=== PATIENT | female | born 1940 | race Caucasian/White ===

== ENCOUNTER 2021-01-08 07:12 | Outpatient (REF) | payer MEDICARE, SELFPAY ==
[2021-01-08 11:35] LABS: Anion Gap 10 (12-20); Blood Urea Nitrogen 14 mg/dL (9-16); Calcium 9.1 mg/dL (8.4-10.2); Carbon Dioxide 29 mmol/L (22-29); Chloride 104 mmol/L (96-108); Estimated Glomerular Filt Rate > 60; Glucose Fasting 92 mg/dL (60-99); Potassium 4.2 mmol/L (3.3-5.1); Sodium 139 mmol/L (135-145)
== END 2021-01-08 07:13 | disposition home or self-care (01) ==
LOC: HO.HMGCLDS 07:12
PROVIDERS: PCP Internal Medicine; Visit Provider Internal Medicine
DX: E78.5 Hyperlipidemia, unspecified (principal); M85.80 Other specified disorders of bone density and structure, unspecified site; I10 Essential (primary) hypertension; Z78.0 Asymptomatic menopausal state
CPT/HCPCS: 36415; 80048

== ENCOUNTER 2021-01-11 08:40 | Outpatient (REF) | payer MEDICARE, SELFPAY ==
--- NOTE | ~2021-01-11 | MM_ITS ---
EXAMINATION: BONE DENSITOMETRY CLINICAL INDICATION: Other specified disorders of bone density and structure, right thigh. COMPARISON: Previous BD dated 08/25/2016 and baseline BD dated 01/31/2008. TECHNIQUE: Using a [employer] DXA System (software version: 13.1) manufactured by [employer], dual-energy x-ray absorptiometry was performed of the lumbar spine and left hip. The images are of good technical quality. Summary results are attached. FINDINGS: AP SPINE L2-L4 (excluding L1): The data of L1-L4 has been changed to exclude the L1 vertebral body, because degenerative changes at this level may cause overestimation of lumbar spine density. Current: BMD 1.177 g/cm2, Z-score 1.3, T-score -0.2, normal, 0.5% decrease from previous, 6.5% increase from baseline (<5% change is not significant). Prior: BMD 1.183 g/cm2. Baseline: BMD 1.105 g/cm2. LEFT FEMUR, NECK: Current: BMD 0.797 g/cm2, Z-score 0.2, T-score -1.7, osteopenia. Prior: BMD 0.858 g/cm2. Baseline: BMD 0.863 g/cm2. LEFT FEMUR, TOTAL: Current: BMD 0.819 g/cm2, Z-score 0.3, T-score -1.5, osteopenia, 6.6% decrease from previous, 8.1% decrease from baseline (<5% change is not significant). Prior: BMD 0.877 g/cm2. Baseline: BMD 0.891 g/cm2. IDENTIFIED RISK FACTORS: Height loss. Menopause. HISTORY OF FRACTURE: None listed. MEDICATIONS: Calcium or multivitamin. Vitamin D. MM/XR DEXA axial skeleton IMPRESSION: 1. DIAGNOSIS: Osteopenia based on the lowest T-score value of -1.7 in the femoral neck applying World Health Organization criteria. 2. 10-YEAR FRACTURE RISK PREDICTION, FRAX: Major osteoporotic fracture (clinical spine, forearm, hip or shoulder) 14.2%. Hip fracture 3.8%. 3. Treatment Recommendations: NOF guidelines recommend consideration for treatment in postmenopausal women and men age 50 and older presenting with the following: -A hip or vertebral (clinical or morphometric) fracture. -T-score less than or equal to -2.5 at the femoral neck or spine after appropriate evaluation to exclude secondary causes. -Low bone mass at the hip or spine and a 10-year fracture probability by FRAX of greater than or equal to 3% for hip fracture or greater than or equal to 20% for major osteoporotic fracture based on the [place] adapted WHO algorithm. 4. Other Recommendations: All treatment decisions require clinical judgment and consideration of individual patient factors, including patient preferences, comorbidities, previous drug use, risk factors not captured in the FRAX model (e.g. frailty, falls, vitamin D deficiency, increased bone turnover, interval significant decline in bone density) and possible under or overestimation of fracture risk by FRAX. Additional medical evaluation for secondary cause of low bone mineral density may be appropriate. FUTURE SCAN RECOMMENDATION: People with diagnosed cases of osteoporosis or at high risk for fracture should have regular bone mineral density tests. For patients eligible for Medicare, routine testing is allowed once every 2 years. The testing frequency can be increased to one year for patients who have rapidly progressing disease, those who are receiving or discontinuing medical therapy to restore bone mass, or have additional risk factors.
--- NOTE | ~2021-01-11 | MM_ITS ---
EXAMINATION: MM SCREENING DIGITAL BREAST TOMOSYNTHESIS, BILATERAL CLINICAL INFORMATION: Screening. Asymptomatic. The lifetime risk of breast cancer based on the Tyrer-Cuzick Model is 2%. COMPARISON: Mammography: 10/30/2019, 10/18/2018, 10/01/2017 TECHNIQUE: Digital breast tomosynthesis is performed in both the craniocaudal and mediolateral oblique views along with computer-aided detection (CAD). Synthesized 2D images are generated from the tomosynthesis. FINDINGS: There are scattered areas of fibroglandular density (ACR BI-RADS breast composition Category b). There are no significant masses, abnormal calcifications, or other abnormalities. There are biopsy clip markers again noted anterior 1:00 left breast and mid lower inner right breast, respectively. There are incidental bilateral vascular calcifications. The axilla and skin contours are unremarkable. MM/MM tomosynthesis screening BI IMPRESSION: No mammographic evidence of malignancy. ASSESSMENT: BI-RADS 2: Benign RECOMMENDATION: Routine annual mammography screening. This patient's information was entered into a reminder system with a target due date for their next mammogram.
== END 2021-01-11 08:41 | disposition home or self-care (01) ==
LOC: HO.MAMMO 08:40
PROVIDERS: PCP Internal Medicine; Visit Provider Internal Medicine
DX: Z12.31 Encounter for screening mammogram for malignant neoplasm of breast (principal); Z13.820 Encounter for screening for osteoporosis; M85.80 Other specified disorders of bone density and structure, unspecified site; M85.851 Other specified disorders of bone density and structure, right thigh; M85.852 Other specified disorders of bone density and structure, left thigh; Z78.0 Asymptomatic menopausal state; Z79.899 Other long term (current) drug therapy
CPT/HCPCS: 77063; 77067; 77080

== ENCOUNTER 2021-08-02 08:11 | Outpatient (REF) | payer MEDICARE, SELFPAY ==
[2021-08-02 11:41] LABS: MANUAL DIFF FLAG NO
[2021-08-02 11:44] LABS: Basophils Percent Auto 0.6 % (0-2); Eosinophils Absolute Auto 0.1 X10*3/uL (0.0-0.4); Eosinophils Percent Auto 2.7 % (0-4); Hemoglobin 13.5 g/dl (12.0-16.0); Imm Gran Abs Auto 0.03 X10*3/uL (0.00-0.03); Imm Gran Pct Auto 0.6 % (0.0-0.4); Lymphocytes Absolute Auto 1.5 X10*3/uL (1.2-4.9); Lymphocytes Percent Auto 28.2 % (20-40); Mean Corpuscular HGB Conc 32.9 g/dl (31.0-35.0); Mean Corpuscular Volume 94.3 fL (80.0-98.0); Mean Platelet Volume 10.4 fL (9.4-12.3); Monocytes Absolute Auto 0.4 X10*3/uL (0.1-1.2); Monocytes Percent Auto 8.6 % (2-11); Neutrophils Absolute Auto 3.1 x10*3/uL (2.0-8.3); Neutrophils Percent Auto 59.3 % (45-73); Platelet Count 225 X10*3/uL (160-400); Red Blood Count 4.35 X10*6/uL (4.20-5.50); Red Cell Distribution Width 12.9 % (11.0-16.0); White Blood Count 5.1 X10*3/uL (4.8-10.8)
[2021-08-02 12:12] LABS: Alanine Aminotransferase 12 U/L (0-31); Anion Gap 12 (12-20); Aspartate Amino Transferase 18 U/L (5-31); Blood Urea Nitrogen 18 mg/dL (9-16); Calcium 9.4 mg/dL (8.4-10.2); Carbon Dioxide 25 mmol/L (22-29); Chloride 105 mmol/L (96-108); Cholesterol 158 mg/dL; Estimated Glomerular Filt Rate > 60; Glucose Fasting 94 mg/dL (60-99); HDL Cholesterol 37 mg/dL; LDL Cholesterol Calculated 91 mg/dl; Potassium 4.3 mmol/L (3.3-5.1); Sodium 138 mmol/L (135-145); Triglycerides 153 mg/dL
[2021-08-02 12:36] LABS: TSH reflex Free T4 2.32 uIU/mL (0.32-4.0); Vitamin D 25-OH Total 60.1 ng/mL (>30)
[2021-08-02 12:45] LABS: Folate > 20.0 ng/mL (> or = 4.0); Vitamin B12 592 pg/mL (200-900)
== END 2021-08-02 08:12 | disposition home or self-care (01) ==
LOC: HO.HMGCLDS 08:11
PROVIDERS: PCP Internal Medicine; Visit Provider Internal Medicine
DX: E78.5 Hyperlipidemia, unspecified (principal); I10 Essential (primary) hypertension; R06.02 Shortness of breath; M85.851 Other specified disorders of bone density and structure, right thigh; M85.852 Other specified disorders of bone density and structure, left thigh; Z78.0 Asymptomatic menopausal state
CPT/HCPCS: 36415; 80048; 80061; 82306; 82607; 82746; 84443; 84450; 84460; 85025

== ENCOUNTER 2022-01-12 09:27 | Outpatient (REF) | payer MEDICARE, SELFPAY ==
--- NOTE | ~2022-01-12 | MM_ITS ---
EXAMINATION: MM SCREENING DIGITAL BREAST TOMOSYNTHESIS, BILATERAL CLINICAL INFORMATION: Screening. Asymptomatic. The lifetime risk of breast cancer based on the Tyrer-Cuzick Model is under 2%. COMPARISON: Mammography: 01/11/2021, 10/30/2019, 10/18/2018 TECHNIQUE: Digital breast tomosynthesis is performed in both the craniocaudal and mediolateral oblique views along with computer-aided detection (CAD). Synthesized 2D images are generated from the tomosynthesis. FINDINGS: There are scattered areas of fibroglandular density (ACR BI-RADS breast composition Category b). There are no significant masses, abnormal calcifications, or other abnormalities. Parenchymal pattern is similar to prior studies. No significant changes. There is a biopsy clip marker again noted anterior upper outer left breast and biopsy clip marker mid lower inner right breast. The axilla are unremarkable. MM/MM tomosynthesis screening BI IMPRESSION: No mammographic evidence of malignancy. ASSESSMENT: BI-RADS 1: Negative RECOMMENDATION: Routine annual mammography screening. This patient's information was entered into a reminder system with a target due date for their next mammogram.
== END 2022-01-12 09:28 | disposition home or self-care (01) ==
LOC: HO.MAMMO 09:27
PROVIDERS: PCP Internal Medicine; Visit Provider Internal Medicine
DX: Z12.31 Encounter for screening mammogram for malignant neoplasm of breast (principal)
CPT/HCPCS: 77063; 77067

== ENCOUNTER 2022-01-19 07:25 | Outpatient (REF) | payer MEDICARE, SELFPAY ==
[2022-01-19 11:40] LABS: Alanine Aminotransferase 13 U/L (0-31); Anion Gap 11 (12-20); Aspartate Amino Transferase 18 U/L (5-31); Blood Urea Nitrogen 22 mg/dL (9-16); Calcium 9.5 mg/dL (8.4-10.2); Carbon Dioxide 26 mmol/L (22-29); Chloride 104 mmol/L (96-108); Cholesterol 157 mg/dL; Estimated Glomerular Filt Rate 57; Glucose Fasting 99 mg/dL (60-99); HDL Cholesterol 38 mg/dL; LDL Cholesterol Calculated 95 mg/dl; Potassium 4.3 mmol/L (3.3-5.1); Sodium 137 mmol/L (135-145); Triglycerides 124 mg/dL
[2022-01-19 12:01] LABS: Vitamin D 25-OH Total 86.4 ng/mL (>30)
== END 2022-01-19 07:26 | disposition home or self-care (01) ==
LOC: HO.HMGCLDS 07:25
PROVIDERS: Visit Provider Internal Medicine
DX: E78.5 Hyperlipidemia, unspecified (principal); M85.851 Other specified disorders of bone density and structure, right thigh; M85.852 Other specified disorders of bone density and structure, left thigh; Z78.0 Asymptomatic menopausal state; I10 Essential (primary) hypertension
CPT/HCPCS: 36415; 80048; 80061; 82306; 84450; 84460

== ENCOUNTER 2022-08-10 08:07 | Outpatient (REF) | payer MEDICARE, SELFPAY ==
[2022-08-10 13:05] LABS: Alanine Aminotransferase 14 U/L (0-31); Anion Gap 10 (12-20); Aspartate Amino Transferase 16 U/L (5-31); Blood Urea Nitrogen 18 mg/dL (9-16); Calcium 9.2 mg/dL (8.4-10.2); Carbon Dioxide 27 mmol/L (22-29); Chloride 104 mmol/L (96-108); Cholesterol 147 mg/dL; Estimated Glomerular Filt Rate > 60; Glucose Fasting 110 mg/dL (60-99); HDL Cholesterol 39 mg/dL; LDL Cholesterol Calculated 90 mg/dl; Potassium 4.2 mmol/L (3.3-5.1); Sodium 137 mmol/L (135-145); Triglycerides 93 mg/dL
== END 2022-08-10 08:08 | disposition home or self-care (01) ==
LOC: HO.HMGCLDS 08:07
PROVIDERS: PCP Internal Medicine; Visit Provider Internal Medicine
DX: E78.5 Hyperlipidemia, unspecified (principal); M85.851 Other specified disorders of bone density and structure, right thigh; M85.852 Other specified disorders of bone density and structure, left thigh; Z78.0 Asymptomatic menopausal state
CPT/HCPCS: 36415; 80048; 80061; 82306; 84450; 84460

== ENCOUNTER 2023-02-19 08:47 | Outpatient (REF) | payer MEDICARE, SELFPAY ==
[2023-02-19 12:06] LABS: Alanine Aminotransferase 10 U/L (0-31); Anion Gap 11 (12-20); Aspartate Amino Transferase 18 U/L (5-31); Blood Urea Nitrogen 18 mg/dL (9-16); Calcium 9.6 mg/dL (8.4-10.2); Carbon Dioxide 26 mmol/L (22-29); Chloride 105 mmol/L (96-108); Cholesterol 138 mg/dL; Estimated Glomerular Filt Rate 54; Glucose Fasting 96 mg/dL (60-99); HDL Cholesterol 35 mg/dL; LDL Cholesterol Calculated 80 mg/dl; Potassium 4.1 mmol/L (3.3-5.1); Sodium 138 mmol/L (135-145); Triglycerides 118 mg/dL
[2023-02-19 12:16] LABS: Vitamin D 25-OH Total 81.2 ng/mL (>30)
== END 2023-02-19 08:48 | disposition home or self-care (01) ==
LOC: HO.HMGCLDS 08:47
PROVIDERS: PCP Internal Medicine; Visit Provider Internal Medicine
DX: Z00.01 Encounter for general adult medical examination with abnormal findings (principal); E78.5 Hyperlipidemia, unspecified; M85.851 Other specified disorders of bone density and structure, right thigh; M85.852 Other specified disorders of bone density and structure, left thigh; Z78.0 Asymptomatic menopausal state
CPT/HCPCS: 36415; 80048; 80061; 82306; 84450; 84460

== ENCOUNTER 2023-02-28 08:40 | Outpatient (REF) | payer MEDICARE, SELFPAY ==
--- NOTE | ~2023-02-28 | MM_ITS ---
EXAMINATION: MM SCREENING DIGITAL BREAST TOMOSYNTHESIS, BILATERAL CLINICAL INFORMATION: Screening. Asymptomatic. The lifetime risk of breast cancer based on the Tyrer-Cuzick Model is 0.7%. COMPARISON: Mammography: This study is compared with prior exams dating back to TECHNIQUE: Digital breast tomosynthesis is performed in both the craniocaudal and mediolateral oblique views along with computer-aided detection (CAD). Synthesized 2D images are generated from the tomosynthesis. FINDINGS: There are scattered areas of fibroglandular density (ACR BI-RADS breast composition Category b). There are no significant masses, abnormal calcifications, or other abnormalities. There are tissue markers in each breast from prior percutaneous biopsies. MM/MM tomosynthesis screening BI IMPRESSION: No mammographic evidence of malignancy. ASSESSMENT: BI-RADS BI-RADS 2 - Benign Findings RECOMMENDATION: Routine annual mammography screening. 1 year F/U This examination should not preclude the clinical evaluation of a suspicious palpable abnormality. This patient's information was entered into a reminder system with a target due date for their next mammogram.
--- NOTE | ~2023-02-28 | MM_ITS ---
EXAMINATION: BONE DENSITOMETRY CLINICAL INDICATION: Other specified disorders of bone density and structure. COMPARISON: Previous BD dated 01/11/2021 and baseline BD dated 01/31/2008. TECHNIQUE: Using a [employer] DXA System (software version: 13.1) manufactured by [employer], dual-energy x-ray absorptiometry was performed of the lumbar spine and left hip. The images are of good technical quality. Summary results are attached. FINDINGS: AP SPINE L2-L4 (excluding L1): The data of L1-L4 has been changed to exclude the L1 vertebral body, because degenerative sclerosis at this level may cause overestimation of lumbar spine density. Current: BMD 1.203 g/cm2, Z-score 1.7, T-score 0.0, normal, 2.2% increase from previous, 8.9% increase from baseline (<5% change is not significant). Prior: BMD 1.177 g/cm2. Baseline: BMD 1.105 g/cm2. LEFT FEMUR, NECK: Current: BMD 0.811 g/cm2, Z-score 0.5, T-score -1.6, osteopenia. Prior: BMD 0.797 g/cm2. Baseline: BMD 0.863 g/cm2. LEFT FEMUR, TOTAL: Current: BMD 0.776 g/cm2, Z-score 0.2, T-score -1.8, osteopenia, 5.3% decrease from previous, 12.9% decrease from baseline (<5% change is not significant). Prior: BMD 0.819 g/cm2. Baseline: BMD 0.891 g/cm2. IDENTIFIED RISK FACTORS: Menopause, low calcium intake, height loss. HISTORY OF FRACTURE: None listed. MEDICATIONS: Vitamin D. MM/XR DEXA axial skeleton IMPRESSION: 1. DIAGNOSIS: Osteopenia based on the lowest T-score value of -1.8 in the total femur applying World Health Organization criteria. 2. 10-YEAR FRACTURE RISK PREDICTION, FRAX: Major osteoporotic fracture (clinical spine, forearm, hip or shoulder) 14.0%. Hip fracture 3.9%. 3. Treatment Recommendations: NOF guidelines recommend consideration for treatment in postmenopausal women and men age 50 and older presenting with the following: -A hip or vertebral (clinical or morphometric) fracture. -T-score less than or equal to -2.5 at the femoral neck or spine after appropriate evaluation to exclude secondary causes. -Low bone mass at the hip or spine and a 10-year fracture probability by FRAX of greater than or equal to 3% for hip fracture or greater than or equal to 20% for major osteoporotic fracture based on the [place] adapted WHO algorithm. 4. Other Recommendations: All treatment decisions require clinical judgment and consideration of individual patient factors, including patient preferences, comorbidities, previous drug use, risk factors not captured in the FRAX model (e.g. frailty, falls, vitamin D deficiency, increased bone turnover, interval significant decline in bone density) and possible under or overestimation of fracture risk by FRAX. Additional medical evaluation for secondary cause of low bone mineral density may be appropriate. FUTURE SCAN RECOMMENDATION: People with diagnosed cases of osteoporosis or at high risk for fracture should have regular bone mineral density tests. For patients eligible for Medicare, routine testing is allowed once every 2 years. The testing frequency can be increased to one year for patients who have rapidly progressing disease, those who are receiving or discontinuing medical therapy to restore bone mass, or have additional risk factors.
== END 2023-02-28 08:41 | disposition home or self-care (01) ==
LOC: HO.MAMMO 08:40
PROVIDERS: PCP Internal Medicine; Visit Provider Internal Medicine
DX: Z12.31 Encounter for screening mammogram for malignant neoplasm of breast (principal); Z13.820 Encounter for screening for osteoporosis; Z78.0 Asymptomatic menopausal state; M85.851 Other specified disorders of bone density and structure, right thigh; M85.852 Other specified disorders of bone density and structure, left thigh
CPT/HCPCS: 77063; 77067; 77080

== ENCOUNTER → 2023-02-28 09:00 | Outpatient (BNV) | payer MEDICARE, SELFPAY | PROVIDERS: PCP Internal Medicine; Visit Provider Radiology Diagnostic Radiology | DX: Z12.31 Encounter for screening mammogram for malignant neoplasm of breast (principal) | CPT/HCPCS: 77063; 77067 ==

== ENCOUNTER 2023-08-04 06:34 | Outpatient (REF) | payer MEDICARE, SELFPAY ==
[2023-08-04 11:30] LABS: Alanine Aminotransferase 15 U/L (0-31); Anion Gap 11 (12-20); Aspartate Amino Transferase 20 U/L (5-31); Blood Urea Nitrogen 24 mg/dL (9-16); Calcium 9.2 mg/dL (8.4-10.2); Carbon Dioxide 26 mmol/L (22-29); Chloride 106 mmol/L (96-108); Cholesterol 213 mg/dL (<200); Estimated Glomerular Filt Rate > 60; Glucose Fasting 89 mg/dL (60-99); HDL Cholesterol 41 mg/dL (>40); LDL Cholesterol Calculated 153 mg/dL (<100); Sodium 139 mmol/L (135-145); Triglycerides 99 mg/dL (<150)
[2023-08-04 11:37] LABS: Vitamin D 25-OH Total 91.5 ng/mL (>30)
== END 2023-08-04 06:35 | disposition home or self-care (01) ==
LOC: HO.HMGCLDS 06:34
PROVIDERS: PCP Internal Medicine; Visit Provider Internal Medicine
DX: E78.5 Hyperlipidemia, unspecified (principal); I44.0 Atrioventricular block, first degree; M85.851 Other specified disorders of bone density and structure, right thigh; M85.852 Other specified disorders of bone density and structure, left thigh; Z78.0 Asymptomatic menopausal state
CPT/HCPCS: 36415; 80048; 80061; 82306; 84450; 84460

== ENCOUNTER 2023-08-24 09:20 | Outpatient (AMB) | payer MEDICARE, SELFPAY ==
--- NOTE | 2023-08-24 09:36 | MHC.PC.OV ---
Vital Signs 08/24/23 10:03 Height 5 ft 4 in Weight 154 lb BMI 26.4 BP 118/66 Blood Pressure Location Lt brachial Position Sitting Pulse 53 Pulse Source Pulse Oximeter Pulse Oximetry (%) 97 Oxygen Delivery Method Room Air Intake Visit Reasons: 6 month follow up Intake Note: Pt is her today for her 6 mo. f/u Allergies Sulfa (Sulfonamide Antibiotics) Allergy (Unknown, Verified 08/24/23 10:23) cough, itching lisinopril Adverse Reaction (Unknown, Verified 08/24/23 10:23) cough Medication List - Last Reconciled 08/24/23 by Rocio Clarke MD amlodipine 10 mg PO DAILY ascorbic acid (vitamin C) 1 g PO ONCE brimonidine 0.2% 1 drp ophthalmic (eye) Q12H cholecalciferol (vitamin D3) 50 mcg PO DAILY latanoprost 0.005% 1 drp ophthalmic (eye) BEDTIME netarsudil 0.02% (Rhopressa) 1 drp ophthalmic-Left QPM simvastatin 10 mg PO QPM timolol maleate 0.5% 1 drp ophthalmic (eye) BID vit [id number] mg (Bioflex) tabs PO vitamin E 400 units PO DAILY Tobacco use date assessed: 08/24/23 Fall risk assessment: No Falls in past year Last assessed Fall Risk: 08/24/23 Dental Screening Dental Screen Date: 08/24/23 Did you have a dental visit in the last 12 months?: No Did you have a dental problem in the last 6 months where you did not have access to dental care?: No Was dental information given to patient?: Patient declined HPI 6 month follow up HPI Details 83-year-old lady here today for follow-up on her lipids. She stop taking her simvastatin since last visit approximately 6 months ago and has only been taking flaxseed. Recent fasting lipids however showed marked elevation in her total cholesterol and LDL cholesterol but triglycerides are within normal limits. She stays active, has been trying to eat a healthy diet, has no complaints at present time. Still refusing to take any vaccine. She had recent bone density scan showing presence of osteopenia in her left femoral neck and left femur, not much change from last time, no history of fractures recent screening mammogram showed results within normal limits. [facility] Medical History First degree AV block Sinus bradycardia on ECG Refused influenza vaccine Refused pneumococcal vaccine Dermatitis Dyslipidemia Hx of fibrocystic disease of breast Post-menopause Osteopenia of both hips Surgical History Hx of colonoscopy Hx of breast biopsy Family History Father No problems noted. Mother No problems noted. Social History Housing: House Alcohol intake: never Patient Tobacco Use Status: Never used Tobacco e-Cigarette/Vaping Use: Never Used service: No Current occupational status: retired Cognitive needs: No Hearing needs: No Vision needs: Yes Questionnaire PHQ-9 Over the last 2 weeks, how often have you been bothered by any of the following problems? [id number] - PHQ-9 Billing: Patient declined-do not bill Source: Developed by Drs. Herman Jacobo, Ksenia Le, Luis Milian and colleagues, with an educational zeyad from [employer]. Thrive Questionnaire Date Thrive assessed: 02/19/23 AUDIT C Alcohol Use Questionnaire (AUDIT-C) 1. How often do you have a drink containing alcohol?: Never 3. How often do you have six or more drinks on one occasion?: Never Total Score: 0 Score Reviewed/Action Taken: Yes TAM-7 AMB Questionnaire TAM-7 Date TAM - 7 assessed: 08/24/23 Source: Developed by Drs. Herman Jacobo, Ksenia Le, Luis Milian and colleagues, with an educational zeyad from [employer]. TAM-7 Assessment Billing TAM-7 Assessment Tool: pt declined-do not bill Review of Systems Const Denies body aches, Denies fatigue, Denies fever(s), Denies headache(s), Denies poor appetite and Denies weakness Eyes Details: Sees Dr. Reyes, with history of impending retinal detachment status post laser surgery 2 weeks ago Denies change in vision ENT Reports Normal hearing present, Denies dizziness, Denies headache(s), Denies nasal congestion, Denies nasal discharge and Denies sore throat Card Denies chest pain, Denies lightheadedness, Denies palpitations and Denies orthopnea Resp Denies chest congestion, Denies cough and Denies wheezing GI Denies abdominal pain, Denies melena, Denies hematochezia, Denies change in bowel habits and Denies heartburn Denies urinary frequency, Denies dysuria and Denies urinary urgency Musc Details: Occasional stiffness in hips Denies abnormal gait, Denies myalgias and Denies arthralgias Skin/Breast Reports as per HPI, Denies lesions and Denies rash Neuro Reports Normal hearing present, Denies abnormal gait, Denies dizziness, Denies headache(s), Denies memory loss and Denies weakness Psych Denies memory loss Endo Denies fatigue, Denies polydipsia, Denies polyuria and Denies palpitations Fabio/Lymph Denies easy bleeding and Denies easy bruising Aller/Immun Denies seasonal rhinorrhea and Denies wheezing Physical exam (Primary Care) Vital Signs: Last Vital Signs Pulse 53 08/24/23 10:03 BP 118/66 08/24/23 10:03 Pulse Ox 97 08/24/23 10:03 Oxygen Delivery Method Room Air 08/24/23 10:03 BMI result Body Mass Index 26.4 Tobacco/Smoking Status: Tobacco use Status Tobacco use date assessed 08/24/23 08/24/23 09:37 Patient Tobacco Use Status Never used Tobacco 08/24/23 09:36 e-Cigarette/Vaping Use Never Used 08/24/23 09:36 Thrive Assessment: Date of Thrive Assessment Date Thrive assessed 02/19/23 08/24/23 09:36 Const General: comfortable, no acute distress and alert Orientation/consciousness: patient oriented x3 Limitations: no limitations HENMT Ears: external ears normal Eyes General: appearance normal, both eyes and all related structures Neck Neck: Yes full ROM, Yes no lymphadenopathy and Yes supple Resp Effort & Inspection: normal respiratory effort and able to speak in complete sentences Auscultation: clear to auscultation bilaterally Cardio Rate: regular rate Rhythm: regular rhythm Heart sounds: S1 normal heart sound present and S2 normal heart sound present GI Palpation (GI): Soft to palpation, nontender and no masses Auscultation: normal bowel sounds Back/Spine/Pelvis Back: No back tenderness Neuro General: patient oriented x3, gait normal, tone normal, moves all extremities, Normal light touch and pain sensation and no focal motor deficits Cranial nerves: Yes Normal hearing present Cognition (Neuro): normal cognition Extrem General: Yes full ROM, Yes no joint enlargement, Yes no clubbing, cyanosis or edema and Yes no calf tenderness Results Reviewed Results Reviewed: sy: Padmaja Casarez Age/Sex: 83/F : 1940 Unit#: [id number] Attend Dr: Rocio Clarke MD Re08/04/23 Status: DEP [facility] Disch: SPEC : [id number] SHARLA: 08/04/23 STATUS: COMP REQ : [id number] RECD: 08/04/23-[address]: Rocio Clarke MD COMP: 08/04/23 ENTERED: 08/04/[address]: ORDERED: Met Prof Fast, AST, ALT, Lipid Panel, Vitamin D 25-OH Test Result Flag Reference Site Sodium 139 135-145 mmol/L Potassium 4.0 3.3-5.1 mmol/L CL 106 96-108 mmol/L CO2 26 22-29 mmol/L Gap 11 L 12-20 BUN 24 H 9-16 mg/dL Creat 0.86 0.5-1.4 mg/dL EGFR > 60 NOTE: For -[place] individuals, multiply the result by 1.210. Chronic Kidney Disease: Estimated GFR < 60 mL/min/1.73m2 Severe Kidney Disease: Estimated GFR < 15 mL/min/1.73m2 FBS 89 60-99 mg/dL CA 9.2 8.4-10.2 mg/dL AST (GOT) 20 5-31 U/L ALT (GPT) 15 0-31 U/L Triglyceride 99 <150 mg/dL Desirable Triglyceride: less than 150 mg/dL Borderline High Triglyceride 150-199 mg/dL High Triglyceride: 200-499 mg/dL Very High Triglyceride: greater than or equal to 5OO mg/dL Cholesterol 213 H <200 mg/dL Desirable Cholesterol: less than 200 mg/dL Borderline High Cholesterol: 200-239 mg/dL High Cholesterol: greater than 239 mg/dL LDL Calculated 153 H <100 mg/dL Desirable LDL: less than 100 mg/dL Near Optimal/Above Optimal LDL: 110-129 mg/dL Borderline High LDL: 130-159 mg/dL High LDL: 160-189 mg/dL Very High LDL: greater than or equal to 190 mg/dL HDL 41 >40 mg/dL Desirable HDL: greater than 40 mg/dL Note: This HDL assay may give artificially low results in patients with liver disease. Vit D 25-OH Tot 91.5 >30 ng/mL Health Based Reference Values* < 20 ng/mL Deficient 20-30 ng/mL Insufficient > 30 ng/mL Sufficient Assessment and Plan Assessment & Plan (1) Dyslipidemia: Code(s): E78.5 - Hyperlipidemia, unspecified Plan: Discuss recent for results of fasting labs with patient which showed marked elevation in total cholesterol and LDL cholesterol as compared to last check. Will restart back on simvastatin 10 mg at bedtime, may continue taking flaxseed supplements, continue with healthy eating habits, low-cholesterol diet, regular exercise, repeat another fasting lipid panel in December 2023 (2) Osteopenia of both hips: Code(s): M85.851 - Other specified disorders of bone density and structure, right thigh; M85.852 - Other specified disorders of bone density and structure, left thigh Plan: Continue doing regular weight-bearing exercise, continue taking vitamin-D 3 supplements and taking adequate calcium from dietary sources (3) Refused pneumococcal vaccine: Code(s): Z28.21 - Immunization not carried out because of patient refusal (4) Refused influenza vaccine: Code(s): Z28.21 - Immunization not carried out because of patient refusal Orders: Orders Lipid Panel 12/26/23 E78.5 - Hyperlipidemia, unspecified, I44.0 - Atrioventricular block, first degree, Z78.0 - Asymptomatic menopausal state Alanine Aminotransferase 12/26/23 E78.5 - Hyperlipidemia, unspecified, I44.0 - Atrioventricular block, first degree, Z78.0 - Asymptomatic menopausal state Aspartate Amino Transferase 12/26/23 E78.5 - Hyperlipidemia, unspecified, I44.0 - Atrioventricular block, first degree, Z78.0 - Asymptomatic menopausal state Basic Metabolic Panel Fasting 12/26/23 E78.5 - Hyperlipidemia, unspecified, I44.0 - Atrioventricular block, first degree, Z78.0 - Asymptomatic menopausal state Hemoglobin and Hematocrit 12/26/23 E78.5 - Hyperlipidemia, unspecified, I44.0 - Atrioventricular block, first degree, Z78.0 - Asymptomatic menopausal state Medications: Refilled simvastatin 10 mg PO QPM 90 tabs 3RF Coding Level of Care Code Est Pt Level 3 (74394) Diagnoses Dyslipidemia E78.5 Osteopenia of both hips M85.851; M85.852 Refused pneumococcal vaccine Z28.21 Refused influenza vaccine Z28.21
[2023-08-24 10:03] VITALS: BP 118/66; PULSE 53; O2SAT 97; BMI 26.4
== END 2023-08-24 10:40 | disposition home or self-care (01) ==
PROVIDERS: PCP Internal Medicine; Visit Provider Internal Medicine
DX: E78.5 Hyperlipidemia, unspecified (principal); M85.851 Other specified disorders of bone density and structure, right thigh; M85.852 Other specified disorders of bone density and structure, left thigh; Z28.21 Immunization not carried out because of patient refusal
CPT/HCPCS: 99213

== ENCOUNTER 2024-01-10 07:32 | Outpatient (REF) | payer MEDICARE, SELFPAY ==
[2024-01-10 10:20] LABS: Hematocrit 37.9 % (37.0-47.0); Hemoglobin 12.6 g/dl (12.0-16.0)
[2024-01-10 10:35] LABS: Alanine Aminotransferase 12 U/L (0-31); Anion Gap 11 (12-20); Aspartate Amino Transferase 18 U/L (5-31); Blood Urea Nitrogen 16 mg/dL (9-16); Calcium 9.2 mg/dL (8.4-10.2); Carbon Dioxide 28 mmol/L (22-29); Chloride 103 mmol/L (96-108); Cholesterol 134 mg/dL (<200); Estimated Glomerular Filt Rate > 60; Glucose Fasting 94 mg/dL (60-99); HDL Cholesterol 42 mg/dL (>40); LDL Cholesterol Calculated 79 mg/dL (<100); Potassium 4.1 mmol/L (3.3-5.1); Sodium 138 mmol/L (135-145); Triglycerides 65 mg/dL (<150)
== END 2024-01-10 07:33 | disposition home or self-care (01) ==
LOC: HO.HMGCLDS 07:32
PROVIDERS: PCP Internal Medicine; Visit Provider Internal Medicine
DX: E78.5 Hyperlipidemia, unspecified (principal); Z78.0 Asymptomatic menopausal state; I44.0 Atrioventricular block, first degree
CPT/HCPCS: 36415; 80048; 80061; 84450; 84460; 85014; 85018

== ENCOUNTER 2024-02-21 08:58 | Outpatient (AMB) | payer MEDICARE, SELFPAY ==
--- NOTE | 2024-02-21 09:01 | MHC.PC.OV ---
Vital Signs 02/21/24 09:02 Height 5 ft 4 in Weight 158 lb BMI 27.1 BP 140/80 H Blood Pressure Location Lt brachial Position Sitting Pulse 60 Pulse Source Pulse Oximeter Pulse Oximetry (%) 98 Oxygen Delivery Method Room Air Intake Visit Reasons: PE Intake Note: Pt is here today for her PE: bone density scan 02/28/23 Allergies Sulfa (Sulfonamide Antibiotics) Allergy (Unknown, Verified 02/21/24 09:22) cough, itching lisinopril Adverse Reaction (Unknown, Verified 02/21/24 09:22) cough Medication List - Last Reconciled 02/21/24 by Rocio Clarke MD amlodipine 10 mg PO DAILY ascorbic acid (vitamin C) 1 g PO ONCE brimonidine 0.2% 1 drp ophthalmic (eye) Q12H cholecalciferol (vitamin D3) 50 mcg PO DAILY latanoprost 0.005% 1 drp ophthalmic (eye) BEDTIME netarsudil 0.02% (Rhopressa) 1 drp ophthalmic-Left QPM simvastatin 10 mg PO QPM timolol maleate 0.5% 1 drp ophthalmic (eye) BID vit [id number] 503-05-06-40 mg (Bioflex) tabs PO vitamin E 400 units PO DAILY Tobacco use date assessed: 02/21/24 Fall risk assessment: No Falls in past year Last assessed Fall Risk: 02/21/24 Dental Screening Dental Screen Date: 02/21/24 Did you have a dental visit in the last 12 months?: No Did you have a dental problem in the last 6 months where you did not have access to dental care?: No Was dental information given to patient?: No HPI PE HPI Details 83-year-old lady here today for physical exam. She is up-to-date with her screening mammogram and bone density scan done 02/28/2023 which showed normal findings except for presence of osteopenia in left femoral neck and left femur, normal in lumbar spine. 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 She takes amlodipine 10 mg daily and simvastatin 10 mg at night for her hypertension and hyperlipidemia both of which are well controlled She has glaucoma, followed by Dr. Reyes She has been feeling well, with no complaints of any chest pain now headaches no dizziness no shortness of breath. PFSH Medical History (Updated 02/21/24 @ 09:36 by Rocio Clarke MD) Essential hypertension First degree AV block Sinus bradycardia on ECG Refused influenza vaccine Refused pneumococcal vaccine Dermatitis Dyslipidemia Hx of fibrocystic disease of breast Post-menopause Osteopenia of both hips Surgical History Hx of colonoscopy Hx of breast biopsy Family History Father No problems noted. Mother No problems noted. Social History Housing: House Alcohol intake: never Patient Tobacco Use Status: Never used Tobacco e-Cigarette/Vaping Use: Never Used service: No Current occupational status: retired Cognitive needs: No Hearing needs: No Vision needs: Yes Questionnaire PHQ-9 Over the last 2 weeks, how often have you been bothered by any of the following problems? 34754 - PHQ-9 Billing: Patient declined-do not bill Source: Developed by Drs. Herman Jacobo, Ksenia Le, Luis Milian and colleagues, with an educational zeyad from [employer]. Thrive Questionnaire Date Thrive assessed: 02/21/24 What is your living situation today?: I choose not to answer this question Within the past 12 months, did the food you bought not last and you didn't have the money to get more?: I choose not to answer this question Within the past 12 months, did you worry whether your food would run out before you got money to buy more?: I choose not to answer this question Do you have trouble paying for medicines?: I choose not to answer this question Do you have trouble getting transportation to medical appointments?: I choose not to answer this question Do you have trouble paying your heating and electricity bill?: I choose not to answer this question Do you have trouble taking care of your child, family member or friend?: I choose not to answer this question Do you have trouble with day-to-day activities such as bathing, preparing meals, shopping, managing finances, etc.?: I choose not to answer this question Are you currently unemployed and looking for a job?: I choose not to answer this question Are you interested in more education?: I choose not to answer this question Currently or been in a relationship where the following occur: I choose not to answer THRIVE Score: 0 AUDIT C Alcohol Use Questionnaire (AUDIT-C) 1. How often do you have a drink containing alcohol?: Never 3. How often do you have six or more drinks on one occasion?: Never Total Score: 0 Score Reviewed/Action Taken: No TAM-7 AMB Questionnaire TAM-7 Date TAM - 7 assessed: 02/21/24 Source: Developed by Drs. Herman Jacobo, Ksenia Le, Luis Milian and colleagues, with an educational zeyad from [employer]. TAM-7 Assessment Billing TAM-7 Assessment Tool: pt declined-do not bill Review of Systems Const Denies body aches, Denies fatigue, Denies fever(s), Denies headache(s), Denies poor appetite and Denies weakness Eyes Details: Sees Dr. Reyes, Denies change in vision ENT Reports Normal hearing present, Denies dizziness, Denies headache(s), Denies nasal congestion, Denies nasal discharge and Denies sore throat Card Denies chest pain, Denies lightheadedness, Denies palpitations and Denies orthopnea Resp Denies chest congestion, Denies cough and Denies wheezing GI Denies abdominal pain, Denies melena, Denies hematochezia, Denies change in bowel habits and Denies heartburn Denies urinary frequency, Denies dysuria and Denies urinary urgency Musc Details: Occasional stiffness in hips Denies abnormal gait, Denies myalgias and Denies arthralgias Skin/Breast Reports as per HPI, Denies lesions and Denies rash Neuro Reports Normal hearing present, Denies abnormal gait, Denies dizziness, Denies headache(s), Denies memory loss and Denies weakness Psych Denies memory loss Endo Denies fatigue, Denies polydipsia, Denies polyuria and Denies palpitations Fabio/Lymph Denies easy bleeding and Denies easy bruising Aller/Immun Denies seasonal rhinorrhea and Denies wheezing Physical exam (Primary Care) Vital Signs: Last Vital Signs Pulse 60 02/21/24 09:02 BP 140/80 H 02/21/24 09:02 Pulse Ox 98 02/21/24 09:02 Oxygen Delivery Method Room Air 02/21/24 09:02 BMI result Body Mass Index 27.1 Tobacco/Smoking Status: Tobacco use Status Tobacco use date assessed 02/21/24 02/21/24 09:06 Patient Tobacco Use Status Never used Tobacco 02/21/24 09:06 e-Cigarette/Vaping Use Never Used 02/21/24 09:06 Thrive Assessment: Date of Thrive Assessment Date Thrive assessed 02/21/24 02/21/24 09:06 Currently or been in a relationship where the following occur: I choose not to answer Const General: comfortable, no acute distress and alert Orientation/consciousness: patient oriented x3 Limitations: no limitations HENMT Ears: external ears normal Eyes General: appearance normal, both eyes and all related structures Neck Neck: Yes full ROM, Yes no lymphadenopathy and Yes supple Chest Breast/axilla palpation: normal palpation of the breasts Resp Effort & Inspection: normal respiratory effort and able to speak in complete sentences Auscultation: clear to auscultation bilaterally Cardio Rate: regular rate Rhythm: regular rhythm Heart sounds: S1 normal heart sound present, S2 normal heart sound present and Murmur heart sound present systolic soft and at the left sternal border GI Palpation (GI): Soft to palpation, nontender and no masses Auscultation: normal bowel sounds Back/Spine/Pelvis Back: No back tenderness Skin General skin exam: no rashes or lesions noted Neuro General: patient oriented x3, gait normal, tone normal, moves all extremities, Normal light touch and pain sensation and no focal motor deficits Cranial nerves: Yes Normal hearing present Cognition (Neuro): normal cognition Extrem General: Yes full ROM, Yes no joint enlargement, Yes no clubbing, cyanosis or edema and Yes no calf tenderness Psych Appearance: grossly normal and well kempt Mental Status: mental status grossly normal Speech and movement: Normal speech and movement present Affect: normal affect Attitude: cooperative Thought process: Normal thought process present Thought content: Normal thought content present Results Reviewed Results Reviewed: Name: Padmaja Casarez Age/Sex: 83/F : 1940 Unit#: [id number] Attend Dr: Rocio Clarke MD Re01/10/24 Status: DEP REF Location: [facility] Disch: SPEC : [id number] SHARLA: 01/10/24 STATUS: COMP REQ : [id number] RECD: 01/10/24 [facility] DR: Rocio Clarke MD COMP: 01/10/24 ENTERED: 01/10/24 [facility] DR: ORDERED: Met Prof Fast, AST, ALT, Lipid Panel Test Result Flag Reference Sodium 138 135-145 mmol/L Potassium 4.1 3.3-5.1 mmol/L CL 103 96-108 mmol/L CO2 28 22-29 mmol/L Gap 11 L 12-20 BUN 16 9-16 mg/dL Creat 0.87 0.5-1.4 mg/dL EGFR > 60 NOTE: For -[place]rist[place] individuals, multiply the result by 1.210. Chronic Kidney Disease: Estimated GFR < 60 mL/min/1.73m2 Severe Kidney Disease: Estimated GFR < 15 mL/min/1.73m2 FBS 94 60-99 mg/dL CA 9.2 8.4-10.2 mg/dL AST (GOT) 18 5-31 U/L ALT (GPT) 12 0-31 U/L Triglyceride 65 <150 mg/dL Desirable Triglyceride: less than 150 mg/dL Borderline High Triglyceride 150-199 mg/dL High Triglyceride: 200-499 mg/dL Very High Triglyceride: greater than or equal to 5OO mg/dL Cholesterol 134 <200 mg/dL Desirable Cholesterol: less than 200 mg/dL Borderline High Cholesterol: 200-239 mg/dL High Cholesterol: greater than 239 mg/dL LDL Calculated 79 <100 mg/dL Desirable LDL: less than 100 mg/dL Near Optimal/Above Optimal LDL: 110-129 mg/dL Borderline High LDL: 130-159 mg/dL High LDL: 160-189 mg/dL Very High LDL: greater than or equal to 190 mg/dL HDL 42 >40 mg/dL Desirable HDL: greater than 40 mg/dL Note: This HDL assay may give artificially low results in patients with liver disease. Assessment and Plan Assessment & Plan (1) Annual visit for general adult medical examination with abnormal findings: Code(s): Z00.01 - Encounter for general adult medical examination with abnormal findings Plan: Reviewed recent fasting lab results with patient which showed normal fasting glucose and lipids.. She sees Dr. Reyes for routine eye exam and follow-up on glaucoma . Take adequate calcium in diet and vitamin-D 3 at 2000 IU per cap once a day, in addition to weight-bearing exercises to help maintain good muscle tone and weight control. I up-to-date with her screening mammogram and bone density scan. No further colonoscopy indicated. Patient does not want to get any vaccines (2) Systolic ejection murmur: Code(s): R01.1 - Cardiac murmur, unspecified Plan: Ordered transthoracic echocardiogram (3) Osteopenia of both hips: Code(s): M85.851 - Other specified disorders of bone density and structure, right thigh; M85.852 - Other specified disorders of bone density and structure, left thigh Plan: Continue with regular weight-bearing exercise, stay active, take adequate calcium from dietary sources and continue with vitamin-D 3 supplements 50 mcg daily (4) Dyslipidemia: Code(s): E78.5 - Hyperlipidemia, unspecified Plan: Recent fasting lab showed lipids within normal limits, continue on simvastatin 10 mg at night (5) Refused pneumococcal vaccine: Code(s): Z28.21 - Immunization not carried out because of patient refusal (6) Refused influenza vaccine: Code(s): Z28.21 - Immunization not carried out because of patient refusal Orders: Orders CA echo transthoracic complete 02/21/24 R01.1 - Cardiac murmur, unspecified Lipid Panel 1 Year E78.5 - Hyperlipidemia, unspecified, M85.851 - Other specified disorders of bone density and structure, right thigh, M85.852 - Other specified disorders of bone density and structure, left thigh, Z00.01 - Encounter for general adult medical examination with abnormal findings, I10 - Essential (primary) hypertension Alanine Aminotransferase 1 Year E78.5 - Hyperlipidemia, unspecified, Z28.21 - Immunization not carried out because of patient refusal, M85.851 - Other specified disorders of bone density and structure, right thigh, M85.852 - Other specified disorders of bone density and structure, left thigh, Z00.01 - Encounter for general adult medical examination with abnormal findings, I10 - Essential (primary) hypertension Basic Metabolic Panel Fasting 1 Year E78.5 - Hyperlipidemia, unspecified, Z28.21 - Immunization not carried out because of patient refusal, M85.851 - Other specified disorders of bone density and structure, right thigh, M85.852 - Other specified disorders of bone density and structure, left thigh, Z00.01 - Encounter for general adult medical examination with abnormal findings, I10 - Essential (primary) hypertension Vitamin D 25-OH Total 1 Year E78.5 - Hyperlipidemia, unspecified, Z28.21 - Immunization not carried out because of patient refusal, M85.851 - Other specified disorders of bone density and structure, right thigh, M85.852 - Other specified disorders of bone density and structure, left thigh, Z00.01 - Encounter for general adult medical examination with abnormal findings, I10 - Essential (primary) hypertension Aspartate Amino Transferase 1 Year E78.5 - Hyperlipidemia, unspecified, Z28.21 - Immunization not carried out because of patient refusal, M85.851 - Other specified disorders of bone density and structure, right thigh, M85.852 - Other specified disorders of bone density and structure, left thigh, Z00.01 - Encounter for general adult medical examination with abnormal findings, I10 - Essential (primary) hypertension Coding Level of Care Code Est Pt Prev Care >65y(88628) Diagnoses Annual visit for general adult medical examination with abnormal findings Z00.01 Systolic ejection murmur R01.1 Osteopenia of both hips M85.851; M85.852 Dyslipidemia E78.5 Refused pneumococcal vaccine Z28.21 Refused influenza vaccine Z28.21
[2024-02-21 09:02] VITALS: BP 140/80; PULSE 60; O2SAT 98; BMI 27.1
== END 2024-02-21 10:20 | disposition home or self-care (01) ==
LOC: HO.HMGC 08:58
PROVIDERS: PCP Internal Medicine; Visit Provider Internal Medicine
DX: Z00.00 Encounter for general adult medical examination without abnormal findings (principal); R01.1 Cardiac murmur, unspecified; M85.851 Other specified disorders of bone density and structure, right thigh; M85.852 Other specified disorders of bone density and structure, left thigh; E78.5 Hyperlipidemia, unspecified; Z28.21 Immunization not carried out because of patient refusal
CPT/HCPCS: 99397

== ENCOUNTER 2024-03-10 08:27 | Outpatient (REF) | payer MEDICARE, SELFPAY ==
--- NOTE | ~2024-03-10 | MM_ITS ---
EXAMINATION: MM SCREENING DIGITAL BREAST TOMOSYNTHESIS, BILATERAL CLINICAL INFORMATION: Screening. Asymptomatic. COMPARISON: Mammography: This study is compared with prior exams dating back to 2020. TECHNIQUE: Digital breast tomosynthesis is performed in both the craniocaudal and mediolateral oblique views along with computer-aided detection (CAD). Synthesized 2D images are generated from the tomosynthesis. FINDINGS: There are scattered areas of fibroglandular density (ACR BI-RADS breast composition Category b). There are no significant masses, abnormal calcifications, or other abnormalities. There is a biopsy tissue marker in each breast. MM/MM tomosynthesis screening BI IMPRESSION: No mammographic evidence of malignancy. ASSESSMENT: BI-RADS BI-RADS 2 - Benign Findings RECOMMENDATION: Routine annual mammography screening. 1 year F/U This examination should not preclude the clinical evaluation of a suspicious palpable abnormality. This patient's information was entered into a reminder system with a target due date for their next mammogram.
== END 2024-03-10 08:28 | disposition home or self-care (01) ==
LOC: HO.MAMMO 08:27
PROVIDERS: PCP Internal Medicine; Visit Provider Internal Medicine
DX: Z12.31 Encounter for screening mammogram for malignant neoplasm of breast (principal)
CPT/HCPCS: 77063; 77067

== ENCOUNTER → 2024-03-10 08:30 | Outpatient (BNV) | payer MEDICARE, SELFPAY | PROVIDERS: PCP Internal Medicine; Visit Provider Radiology Diagnostic Radiology | DX: Z12.31 Encounter for screening mammogram for malignant neoplasm of breast (principal) | CPT/HCPCS: 77063; 77067 ==

== ENCOUNTER → 2024-03-11 09:10 | Outpatient (REF) | payer MEDICARE, SELFPAY ==
--- NOTE | 2024-03-11 09:13 | CA_ITS ---
Transthoracic Echocardiogram Patient (Last, First, Middle): Padmaja Casarez A Gender: Female Date of : 1940 Age: 83 Procedure Date: 03/11/2024 Procedure Type: Transthoracic Echocardiogram Location: OP Height: 157.48 cm Weight: 69.85 kg BSA: 1.71 m2 Heart Rate: bpm BP: 124 / 62 mmHg Conductor/Engineer: TO Referring MD: Rocio Clarke MD Government Affairs Specialist: Juan Manuel Lloyd MD Symptoms: R01.1 - Cardiac murmur, unspecified Study Quality: Adequate ECG Rhythm: Sinus Conclusions: - 1. Normal LV ejection fraction of 65-70% with pseudonormal filling pattern 2. Mildly calcified aortic and mitral valve with trivial aortic and mild mitral regurgitation 3. Normal RV systolic pressure 4. Mildly dilated ascending aorta at 3.7 cm 5. No gross pericardial effusion Findings Left Ventricle Normal left ventricular size, thickness, and systolic function. The visually estimated ejection fraction is between 65-70%. Spectral Doppler is indicative of a pseudonormal filling pattern. E/E prime ratio is between 8 and 15 consistent with indeterminate filling pressures. Right Ventricle Mildly increased right ventricular cavity size. There is normal right ventricular systolic function. Atria The left atrium is likely dilated. There is no evidence of interatrial shunt. The right atrium is normal in size. Aortic Valve There is mild calcification of the aortic valve. There is mild thickening of the aortic valve. There is no aortic valve stenosis. There is trace (trivial) aortic valve regurgitation. Mitral Valve There is mild anterior and posterior mitral leaflet thickening. There is mild mitral annular calcification. There is mild mitral valve regurgitation. There is no mitral valve stenosis. Pulmonic Valve The pulmonic valve is likely normal. There is trace to mild pulmonic valve regurgitation. Tricuspid Valve Normal tricuspid valve structure. There is mild tricuspid valve regurgitation. The right ventricular systolic pressure is normal. The right ventricular systolic pressure is 25 mmHg. Normal right atrial pressure. Great Vessels The pulmonary artery was not well visualized. There is mild dilatation of the ascending aorta measuring 3.70 cm. Venous The inferior vena cava is normal in size and collapses greater than 50% with inspiration. Pericardium/Pleural There is no evidence of pericardial effusion. Prior Study Comparison No prior study available for comparison. Measurements 2D Linear Measurements IVSd: 1.15 0.6-0.9/0.6-1.0 cm LVIDd: 3.80 3.9-5.3/4.2-5.9 cm LVIDd Index: 2.22 2.4-3.2/2.2-3.1 cm/m2 LVIDs: 2.44 2.0-3.6 cm LVPWd: 0.73 0.7-1.1 cm LA Diam: 3.10 2.7-3.8/3.0-4.0 cm LAIDs Index: 1.81 1.5-2.3 cm/m2 LV Mass: 133.01 67-162/88-224 g LV Mass Index: 77.78 43-95/49-115 g/m2 LVOT Diam: 2.00 3.0+(-)1.3 cm 2D Systolic Function EF 4C: 68.40 >55% EF 2C: 65.50 >55% EF BiP: 66.90 >55% Mitral Valve MV Pk E: 0.89 MV PK A: 0.57 MV Decel Time: 230.00 E/A: 1.60 E'Lateral: 7.07 E'Medial: 4.03 E/E' Med: 22.00 E/E' Lat: 12.50 PHT: 67.00 MVA PHT: 3.28 Decel Ransom: 3.85 Aortic Valve AoV Pk Cecilio: 1.50 AoV Mn Cecilio: 1.09 AoV VTI: 0.37 AoV Pk Grad: 9.00 Aov Mn Grad: 5.00 AVI Cont.VTI: 2.15 LVOT LVOT Pk Cecilio: 1.04 LVOT Mn Cecilio: 0.71 LVOT VTI: 0.25 LVOT Pk Grad: 4.00 LVOT Mn Grad: 2.00 LVOT Diam: 2.00 LVOT Area: 3.14 Diastolic Function MV Pk E: 0.89 MV Pk A: 0.57 E/A: 1.60 E'Medial: 4.03 E/E' Med: 22.00 E' Laterial: 7.07 E/E' Lat: 12.50 Right Ventricle TAPSE (mm): 24.30 TVS' Cecilio: 11.10 Tricuspid Valve TR Pk Cecilio: 2.37 TR Pk Grad: 22.00 RA Press: 3.00 RVSP: 25.00 Great Vessels Aorta Sinus of Valsalva: 3.22 2.0-3.5 cm Ao Asc: 3.70 2.1-3.4 cm Ao Arch: 3.50 Updated in Other Vendor System with Status of Final Juan Manuel Lloyd MD electronically signed on 03/11/2024 5:07:28 PM with status of Final
== END ==
LOC: HO.CARD 09:10
PROVIDERS: PCP Internal Medicine; Visit Provider Internal Medicine
DX: R01.1 Cardiac murmur, unspecified (principal)
CPT/HCPCS: 93306

== ENCOUNTER → 2024-03-11 09:13 | Outpatient (BNV) | payer MEDICARE, SELFPAY | PROVIDERS: PCP Internal Medicine; Visit Provider Internal Medicine Cardiovascular Disease | DX: I34.0 Nonrheumatic mitral (valve) insufficiency (principal); I36.1 Nonrheumatic tricuspid (valve) insufficiency; I37.1 Nonrheumatic pulmonary valve insufficiency | CPT/HCPCS: 93306 ==

== ENCOUNTER 2024-08-21 13:15 | Outpatient (AMB) | payer MEDICARE, SELFPAY ==
[2024-08-21 13:21] VITALS: BP 132/80; PULSE 82; O2SAT 96; BMI 26.9
--- NOTE | 2024-08-21 13:21 | MHC.PC.OV ---
Vital Signs 08/21/24 13:21 Height 5 ft 4 in Weight 157 lb BMI 26.9 BP 132/80 Blood Pressure Location Lt brachial Position Sitting Pulse 82 Pulse Source Pulse Oximeter Pulse Oximetry (%) 96 Oxygen Delivery Method Room Air Intake Visit Reasons: Lt eye cataract 09/11/24 Dr. Reyes Intake Note: Pt is here today for her pre-op for Lt eye cataract surgery with Dr. Reyes 09/11/24 Allergies Sulfa (Sulfonamide Antibiotics) Allergy (Unknown, Verified 08/21/24 13:37) cough, itching lisinopril Adverse Reaction (Unknown, Verified 08/21/24 13:37) cough Medication List - Last Reconciled 08/21/24 by Rocio Clarke MD amlodipine 10 mg PO DAILY ascorbic acid (vitamin C) 1 g PO ONCE brimonidine 0.2% 1 drp ophthalmic (eye) Q12H cholecalciferol (vitamin D3) 50 mcg PO DAILY latanoprost 0.005% 1 drp ophthalmic (eye) BEDTIME netarsudil 0.02% (Rhopressa) 1 drp ophthalmic-Left QPM simvastatin 10 mg PO QPM timolol maleate 0.5% 1 drp ophthalmic (eye) BID vit [id number] mg (Bioflex) tabs PO vitamin E 400 units PO DAILY Tobacco use date assessed: 08/21/24 Fall risk assessment: No Falls in past year Last assessed Fall Risk: 08/21/24 Dental Screening Dental Screen Date: 08/21/24 Did you have a dental visit in the last 12 months?: No Did you have a dental problem in the last 6 months where you did not have access to dental care?: No Was dental information given to patient?: Patient declined HPI Lt eye cataract 09/11/24 Dr. Reyes HPI Details 84 year old lady with past medical history significant for hypertension, hyperlipidemia, glaucoma and here today for preoperative exam for cataract surgery left eye scheduled on 09/11 , requested by Dr. Rojas. She has been feeling well, pressure stable and controlled on present treatment with amlodipine 10 mg daily.. Last fasting lipids checked on 01/10/2024 showed results within normal limits. Currently taking simvastatin 10 mg at bedtime. 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 [facility] Medical History (Updated 08/21/24 @ 14:03 by Rocio Clarke MD) Essential hypertension First degree AV block Refused influenza vaccine Refused pneumococcal vaccine Dermatitis Dyslipidemia Hx of fibrocystic disease of breast Post-menopause Osteopenia of both hips Surgical History Hx of colonoscopy Hx of breast biopsy Family History Father No problems noted. Mother No problems noted. Social History Housing: House Alcohol intake: never Patient Tobacco Use Status: Never used Tobacco e-Cigarette/Vaping Use: Never Used service: No Current occupational status: retired Cognitive needs: No Hearing needs: No Vision needs: Yes Questionnaire Thrive Questionnaire Date Thrive assessed: 02/21/24 TAM-7 AMB Questionnaire TAM-7 Date TAM - 7 assessed: 02/21/24 Source: Developed by Drs. Herman Jacobo, Ksenia Le, Luis Milian and colleagues, with an educational zeyad from [employer]. Review of Systems Const Denies fatigue, Denies fever(s), Denies headache(s), Denies poor appetite and Denies weakness Eyes Details: Sees Dr. Reyes, ENT Reports Normal hearing present, Denies dizziness, Denies headache(s), Denies nasal congestion, Denies nasal discharge and Denies sore throat Card Denies chest pain, Denies lightheadedness, Denies palpitations and Denies orthopnea Resp Denies chest congestion, Denies cough and Denies wheezing GI Denies abdominal pain, Denies melena, Denies hematochezia, Denies change in bowel habits and Denies heartburn Denies urinary frequency, Denies dysuria and Denies urinary urgency Musc Details: Occasional stiffness in hips Denies abnormal gait, Denies myalgias and Denies arthralgias Skin/Breast Denies lesions and Denies rash Neuro Reports Normal hearing present, Denies abnormal gait, Denies dizziness, Denies headache(s) and Denies weakness Endo Denies fatigue, Denies polydipsia, Denies polyuria and Denies palpitations Fabio/Lymph Denies easy bleeding and Denies easy bruising Aller/Immun Denies seasonal rhinorrhea and Denies wheezing Physical exam (Primary Care) Vital Signs: Last Vital Signs Pulse 82 08/21/24 13:21 BP 132/80 08/21/24 13:21 Pulse Ox 96 08/21/24 13:21 Oxygen Delivery Method Room Air 08/21/24 13:21 BMI result Body Mass Index 26.9 Tobacco/Smoking Status: Tobacco use Status Tobacco use date assessed 08/21/24 08/21/24 13:24 Patient Tobacco Use Status Never used Tobacco 08/21/24 13:24 e-Cigarette/Vaping Use Never Used 08/21/24 13:24 Thrive Assessment: Date of Thrive Assessment Date Thrive assessed 02/21/24 08/21/24 13:24 Const General: comfortable, no acute distress and alert Orientation/consciousness: patient oriented x3 Limitations: no limitations HENMT Ears: external ears normal Eyes General: appearance normal, both eyes and all related structures Neck Neck: Yes full ROM, Yes no lymphadenopathy and Yes supple Resp Effort & Inspection: normal respiratory effort and able to speak in complete sentences Auscultation: clear to auscultation bilaterally Cardio Rate: regular rate Rhythm: regular rhythm Heart sounds: S1 normal heart sound present and S2 normal heart sound present GI Palpation (GI): Soft to palpation, nontender and no masses Auscultation: normal bowel sounds Back/Spine/Pelvis Back: No back tenderness Skin General skin exam: no rashes or lesions noted Neuro General: patient oriented x3, gait normal, tone normal, moves all extremities, Normal light touch and pain sensation and no focal motor deficits Cranial nerves: Yes Normal hearing present Cognition (Neuro): normal cognition Extrem General: Yes full ROM, Yes no joint enlargement, Yes no clubbing, cyanosis or edema and Yes no calf tenderness Psych Appearance: grossly normal and well kempt Mental Status: mental status grossly normal Speech and movement: Normal speech and movement present Affect: normal affect Attitude: cooperative Thought process: Normal thought process present Thought content: Normal thought content present Coding Level of Care Code Est Pt Level 4 (41429) Complex EM visit Add On G2211 Diagnoses Preoperative examination Z01.818 Essential hypertension I10 Dyslipidemia E78.5 Osteopenia of both hips M85.851; M85.852 Assessment & Plan Assessment & Plan (1) Preoperative examination: Code(s): Z01.818 - Encounter for other preprocedural examination Plan: 84-year-old lady here today for preoperative exam for left cataract surgery scheduled for 09/11/[address] [place]. She has hypertension, hyperlipidemia, both stable controlled with present treatment. Preoperative exam is unremarkable. She has a low cardiac risk index for proposed surgery. (2) Essential hypertension: Code(s): I10 - Essential (primary) hypertension Category: Medical Plan: Blood pressure at goal of less than 130/80. Continue with current medication. Reinforced importance of following a low sodium diet, getting regular exercise, and lowering stress levels. (3) Dyslipidemia: Code(s): E78.5 - Hyperlipidemia, unspecified Category: Medical Plan: Reviewed recent fasting lipid profile 01/10/2024 showed results within normal limits . Continue simvastatin 10 mg at bedtime , in addition to adherence to low-cholesterol diet and regular exercise, at least 30 minutes 3 to 4 times a week. Advised patient to make healthy food choices, eat more fruits, vegetables, whole grains, wild caught fish and low-fat dairy. Limit amount of meat and fried or fatty food products, as well as processed foods and fast foods. (4) Osteopenia of both hips: Code(s): M85.851 - Other specified disorders of bone density and structure, right thigh; M85.852 - Other specified disorders of bone density and structure, left thigh Category: Medical Plan: Continue taking vitamin-D 3 supplements daily, continue with regular weight-bearing exercise and taking adequate calcium from dietary sources
== END 2024-08-21 14:48 | disposition home or self-care (01) ==
LOC: HO.HMCC 13:15
PROVIDERS: PCP Internal Medicine; Visit Provider Internal Medicine
DX: Z01.818 Encounter for other preprocedural examination (principal); I10 Essential (primary) hypertension; E78.5 Hyperlipidemia, unspecified; M85.851 Other specified disorders of bone density and structure, right thigh; M85.852 Other specified disorders of bone density and structure, left thigh

== ENCOUNTER → 2024-08-21 13:15 | Outpatient (BNVA) | payer MEDICARE, SELFPAY | PROVIDERS: PCP Internal Medicine; Visit Provider Internal Medicine | DX: Z01.818 Encounter for other preprocedural examination (principal); I10 Essential (primary) hypertension; E78.5 Hyperlipidemia, unspecified; H26.9 Unspecified cataract; M85.852 Other specified disorders of bone density and structure, left thigh; M85.851 Other specified disorders of bone density and structure, right thigh; Z79.899 Other long term (current) drug therapy | CPT/HCPCS: 99212 ==

== ENCOUNTER 2024-08-25 08:37 | Outpatient (AMB) | payer MEDICARE, SELFPAY ==
--- NOTE | 2024-08-25 08:58 | MHC.OFFWIV ---
Intake Vital Signs 08/25/24 09:00 Weight 154 lb BP 132/70 Blood Pressure Location Lt brachial Position Sitting Pulse 64 Pulse Source Pulse Oximeter Temp 99.7 F Temp Source Oral Pulse Oximetry (%) 95 Oxygen Delivery Method Room Air Intake Visit Reasons: EP Cough, body aches Intake Note: Patient here for slight cough and body aches that started yesterday. Patient Tobacco Use Status: Never used Tobacco Allergies Sulfa (Sulfonamide Antibiotics) Allergy (Unknown, Verified 08/25/24 09:01) cough, itching lisinopril Adverse Reaction (Unknown, Verified 08/25/24 09:01) cough Do you need a note to return to daycare/school/sports/work: No HPI EP Cough, body aches HPI Details This note is constructed using voice recognition software. While every effort has been made to ensure accuracy, machine chain maker errors may have been included. The patient is a 84 year old female who presents to the clinic today with cough and body aches since yesterday. She has not tried any medication due to a history of high blood pressure. She denies fever, chills, shortness of breath. She has had some sick exposures, but he is unsure what they have had. [facility] Medical History (Updated 08/21/24 @ 14:03 by Rocio Clarke MD) Essential hypertension First degree AV block Refused influenza vaccine Refused pneumococcal vaccine Dermatitis Dyslipidemia Hx of fibrocystic disease of breast Post-menopause Osteopenia of both hips Surgical History Hx of colonoscopy Hx of breast biopsy Family History Father No problems noted. Mother No problems noted. Social History Housing: House Alcohol intake: never Patient Tobacco Use Status: Never used Tobacco e-Cigarette/Vaping Use: Never Used service: No Current occupational status: retired Cognitive needs: No Hearing needs: No Vision needs: Yes Review of Systems Const All systems reviewed & are unremarkable except as noted in HPI and below Physical Exam Vital Signs: Last Vital Signs Temp 99.7 F 08/25/24 09:00 Pulse 64 08/25/24 09:00 BP 132/70 08/25/24 09:00 Pulse Ox 95 08/25/24 09:00 Oxygen Delivery Method Room Air 08/25/24 09:00 Const General: cooperative, healthy appearing, comfortable and no acute distress Orientation/consciousness: patient oriented x3 Limitations: no limitations HEENT Head: Yes normal to inspection Ears: hearing grossly normal bilaterally, external ears normal and TM's normal bilaterally General nose exam: Normal external nose present, Normal nares present and No nasal discharge present Face and sinus: Yes normal facial exam and Yes sinuses nontender Mouth: Normal oral and palatal mucosa present and moist mucous membranes Throat: Yes tonsils normal, Yes uvula midline and Yes posterior oropharynx abnormal (Erythema) Eyes General: appearance normal, both eyes and all related structures Neck Neck: Yes normal visual inspection Resp Effort & Inspection: normal respiratory effort, able to speak in complete sentences, Actively coughing, no respiratory distress, not tachypneic, no tripod positioning and no use of accessory muscles Auscultation: clear to auscultation bilaterally Cardio Jugular venous distension: no JVD Rate: regular rate Rhythm: regular rhythm Heart sounds: S1 normal heart sound present, S2 normal heart sound present, no click, no gallops, no murmurs and no rubs Skin General skin exam: no rashes or lesions noted, elasticity normal and turgor normal Neuro General: patient oriented x3 Extrem General: Yes normal to inspection and Yes no clubbing, cyanosis or edema Assessment & Plan Assessment & Plan (1) URI (upper respiratory infection): Code(s): J06.9 - Acute upper respiratory infection, unspecified Qualifiers: URI type: unspecified URI Qualified Code(s): J06.9 - Acute upper respiratory infection, unspecified Plan: Viral swab obtained to rule out Covid, Influenza, and RSV based on symptoms. Advised mask wearing while symptomatic and quarantine per current CDC guidelines. Reviewed at home support methods including hydration, humidification, vix vapor rub, sinus rinse, and otc treatment options. Discussed treatment with antiviral therapy for covid with paxlovid and with Tamiflu for influenza, including appropriate use and side effects, and need to start medication within 5 day of symptom onset, preferably within 48 hours of symptom onset. Patient wishes to proceed with antiviral therapy. Advised follow up with worsening symptoms such as dyspnea at rest, which would require emergent evaluation. Plan See above for full details and plan. Orders: Orders SARS-CoV2/FLU/RSV Today J06.9 - Acute upper respiratory infection, unspecified Coding Level of Care Code Est Pt Level 3 (12211) Diagnoses Upper respiratory tract infection, unspecified type J06.9 URI type: unspecified URI
[2024-08-25 09:00] VITALS: BP 132/70; PULSE 64; TEMP 37.6; O2SAT 95
== END 2024-08-25 09:19 | disposition home or self-care (01) ==
PROVIDERS: PCP Internal Medicine; Visit Provider Registered Nurse
DX: J06.9 Acute upper respiratory infection, unspecified (principal)

== ENCOUNTER 2024-08-25 08:37 | Outpatient (REF) | payer MEDICARE, SELFPAY ==
[2024-08-25 11:22] LABS: Influenza A PCR NEGATIVE (Negative); Influenza B PCR NEGATIVE (Negative); Resp Syncy Virus RNA Qual PCR NEGATIVE (Negative); SARS COV2 PCR INHOUSE POSITIVE (Negative)
== END 2024-08-25 08:38 | disposition home or self-care (01) ==
LOC: HO.LNP 08:37
PROVIDERS: PCP Internal Medicine; Visit Provider Registered Nurse
DX: J06.9 Acute upper respiratory infection, unspecified (principal); Z11.52 Encounter for screening for COVID-19
CPT/HCPCS: 0241U; 99212

== ENCOUNTER 2024-12-24 10:44 | Outpatient (REF) | payer MEDICARE, SELFPAY ==
--- NOTE | ~2024-12-24 | XR_ITS ---
EXAMINATION: XR WRIST NAVICULAR LEFT HISTORY: S63.502A - Unspecified sprain of left wrist, initial encounter COMPARISON: Comparison is made with the prior examination of the left thumb dated 07/16/2019. FINDINGS: Four views of the left wrist including a scaphoid view are submitted. The bones are osteopenic. There is a nondisplaced transverse fracture of the distal radial metaphysis. No additional fracture is identified. There is no dislocation. The joint spaces are preserved. There is soft tissue swelling at the fracture site. XR/XR wrist LT w scaphoid IMPRESSION: Nondisplaced transverse fracture of the distal radial metaphysis. Electronically signed by: Herman Huffman MD 12/24/2024 11:35 AM EDT
== END 2024-12-24 10:45 | disposition home or self-care (01) ==
LOC: HO.HMGCX 10:44
PROVIDERS: PCP Internal Medicine; Visit Provider Physician Assistant
DX: S63.502A Unspecified sprain of left wrist, initial encounter (principal); S52.502A Unspecified fracture of the lower end of left radius, initial encounter for closed fracture; W10.8XXA Fall (on) (from) other stairs and steps, initial encounter
CPT/HCPCS: 73110; 99212

== ENCOUNTER 2024-12-24 10:44 | Outpatient (AMB) | payer MEDICARE, SELFPAY ==
--- NOTE | 2024-12-24 10:53 | MHC.OFFWIV ---
Intake Vital Signs 12/24/24 10:54 Height 5 ft 4 in Weight 155 lb 4 oz BMI 26.6 BP 140/70 H Blood Pressure Location Rt brachial Position Sitting Pulse 60 Pulse Source Pulse Oximeter Temp 97.7 F Temp Source Oral Pulse Oximetry (%) 97 Oxygen Delivery Method Room Air Intake Visit Reasons: EP Fall, lt wrist pain Intake Note: Patient complains of Left wrist pain due to a fall. 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: Not Required per policy Accompanied by: Self / Same As Patient Allergies Sulfa (Sulfonamide Antibiotics) Allergy (Unknown, Verified 12/24/24 10:54) cough, itching lisinopril Adverse Reaction (Unknown, Verified 12/24/24 10:54) cough Do you need a note to return to daycare/school/sports/work: No HPI HPI Comments History of Present Illness Details History of Present Illness - The patient is an 84-year-old female with a past medical history of hypertension, first-degree AV block, dyslipidemia and osteopenia of both hips presenting with a fall-related left wrist injury sustained earlier today at approximately 9:30 AM, 90 mins ago. - The fall resulted from tripping due to a slight gradient and not lifting her foot sufficiently while walking. She was not dizzy, lightheaded and did not have any chest pain prior to the fall. - Pain was immediate upon injury as the left wrist was jammed into a set of stairs which were directly in front of her. - The patient reports the capability to move her wrist, but experiences increased pain with movement. - She refrains from taking ibuprofen or Aleve due to her essential hypertension. - Family history notes delayed management in similar injuries, highlighted by relatives using injured limbs for extended periods before seeking care. Physical Exam General: Cooperative, healthy appearing, comfortable, no acute distress and well developed Orientation: Patient oriented x3 Limitations: No limitations Head: Normal to inspection Ears: Hearing grossly normal bilaterally Nose: Normal External nose present Face and sinus: Normal facial exam Eyes: Appearance normal, both eyes and all related structures Neck: Normal visual inspection and Yes full ROM Respiratory: Normal respiratory effort and able to speak in complete sentences. Skin: Scratch and scrapes noted on the hand Neuro: Patient oriented x3 Extremities: Normal to inspection, pain on flexion and extension of the LEFT wrist, pain with deviation to the radial side. No TTP of the forearm or wrist. Equal sliver lapper strength bilaterally, 4/5. Full ROM all digits and NVI. One small abrasion on 3 digit of left hand. [facility] Medical History (Updated 12/24/24 @ 12:02 by Wilda Lee PA-C) Essential hypertension First degree AV block Refused influenza vaccine Refused pneumococcal vaccine Dermatitis Dyslipidemia Hx of fibrocystic disease of breast Post-menopause Osteopenia of both hips Surgical History Hx of colonoscopy Hx of breast biopsy Family History Father No problems noted. Mother No problems noted. Social History Housing: House Alcohol intake: never Patient Tobacco Use Status: Never used Tobacco e-Cigarette/Vaping Use: Never Used service: No Current occupational status: retired Cognitive needs: No Hearing needs: No Vision needs: Yes Review of Systems Const All systems reviewed & are unremarkable except as noted in HPI and below Physical Exam Vital Signs: Last Vital Signs Temp 97.7 F 12/24/24 10:54 Pulse 60 12/24/24 10:54 BP 140/70 H 12/24/24 10:54 Pulse Ox 97 12/24/24 10:54 Oxygen Delivery Method Room Air 12/24/24 10:54 BMI result Body Mass Index 26.6 Assessment & Plan Assessment & Plan (1) Fall (on) (from) other stairs and steps, initial encounter: Code(s): W10.8XXA - Fall (on) (from) other stairs and steps, initial encounter Plan: as below (2) Distal radius fracture, left: Code(s): S52.502A - Unspecified fracture of the lower end of left radius, initial encounter for closed fracture Qualifiers: Encounter type: initial encounter Fracture type: closed Fracture morphology: unspecified fracture morphology Qualified Code(s): S52.502A - Unspecified fracture of the lower end of left radius, initial encounter for closed fracture Plan: XR of the left wrist shows Nondisplaced transverse fracture of the distal radial metaphysis Patient was placed in a sugar tong splint and given a sling for support and comfort, Referral has been sent to Orthopedics for follow up. Told to use ibuprofen for pain however she declines this because she states it effects her blood pressure too much and she is not in any pain. Given instructions on how to care for the cast. Patient was informed and verbally consented to the use of an ambient scribe for clinic note documentation during this visit. Orders: Orders XR wrist LT w scaphoid Today S63.502A - Unspecified sprain of left wrist, initial encounter, W10.8XXA - Fall (on) (from) other stairs and steps, initial encounter Referrals Orthopedics Referral S52.502A - Unspecified fracture of the lower end of left radius, initial encounter for closed fracture Coding Level of Care Code Est Pt Level 4 (73407) Diagnoses Fall (on) (from) other stairs and steps, initial encounter W10.8XXA Closed fracture of distal end of left radius, unspecified fracture morphology, initial encounter S52.502A Encounter type: initial encounter Fracture type: closed Fracture morphology: unspecified fracture morphology
[2024-12-24 10:54] VITALS: BP 140/70; PULSE 60; TEMP 36.5; O2SAT 97; BMI 26.6
== END 2024-12-24 13:14 | disposition home or self-care (01) ==
PROVIDERS: PCP Internal Medicine; Visit Provider Physician Assistant
DX: S52.502A Unspecified fracture of the lower end of left radius, initial encounter for closed fracture (principal); W10.8XXA Fall (on) (from) other stairs and steps, initial encounter

== ENCOUNTER → 2024-12-24 11:14 | Outpatient (BNV) | payer MEDICARE, SELFPAY | PROVIDERS: PCP Internal Medicine; Visit Provider Radiology Diagnostic Radiology | DX: M25.532 Pain in left wrist (principal) | CPT/HCPCS: 73110 ==

== ENCOUNTER 2024-12-29 08:08 | Outpatient (REF) | payer MEDICARE, SELFPAY ==
--- NOTE | ~2024-12-29 | XR_ITS ---
CLINICAL HISTORY: M25.532 - Pain in left wrist 3 view left wrist Comparison: None Findings: Bones intact. No dislocations. Mild degenerative disease with radiocarpal and intercarpal joint space narrowing. No radiopaque foreign body. IMPRESSION: 1. No acute findings. Mild DJD. This document has been electronically signed by: Alyson Alvarez MD on 12/29/2024 22:59:20
== END 2024-12-29 08:09 | disposition home or self-care (01) ==
LOC: HO.HOSX 08:08
DX: M25.532 Pain in left wrist (principal); S52.502A Unspecified fracture of the lower end of left radius, initial encounter for closed fracture
CPT/HCPCS: 25600; 73110; 99202

== ENCOUNTER 2024-12-29 10:24 | Outpatient (AMB) | payer MEDICARE, SELFPAY ==
[2024-12-29 10:29] VITALS: BMI 26.6
--- NOTE | 2024-12-29 10:29 | MHC.OFFVIS ---
Vital Signs 12/29/24 10:29 Height 5 ft 4 in Weight 155 lb BMI 26.6 Intake Visit Reasons: FC- Left distal radius fx DOI 12/24/24 Intake Note: Padmaja is an 84 year old left hand dominant female who presents today for evaluation status post left distal radius fracture, DOI: 12/24/24. Patient reports she fell, jamming her left wrist into a set of stairs. Patient denies numbness, tingling, or finger locking. Patient states she has some discomfort, started when splint was removed prior to x-rays. Patient has two areas of bruising. Patient states she is not taking anything for pain because of her blood pressure meds. She has been working on ROM for her left shoulder and left wrist. Allergies Sulfa (Sulfonamide Antibiotics) Allergy (Unknown, Verified 12/29/24 10:31) cough, itching lisinopril Adverse Reaction (Unknown, Verified 12/29/24 10:31) cough HPI HPI FC- Left distal radius fx DOI 12/24/24: Details: Padmaja is an 84 year old left hand dominant female who presents today for evaluation status post left distal radius fracture, DOI: 12/24/24. Patient reports she fell, jamming her left wrist into a set of stairs. Patient denies numbness, tingling, or finger locking. Patient states she has some discomfort, started when splint was removed prior to x-rays. Patient has two areas of bruising. Patient states she is not taking anything for pain because of her blood pressure meds. She has been working on ROM for her left shoulder and left wrist. [facility] Medical History (Updated 12/24/24 @ 12:02 by Wilda Lee PA-C) Essential hypertension First degree AV block Refused influenza vaccine Refused pneumococcal vaccine Dermatitis Dyslipidemia Hx of fibrocystic disease of breast Post-menopause Osteopenia of both hips Surgical History Hx of colonoscopy Hx of breast biopsy Family History Father No problems noted. Mother No problems noted. Social History (Updated 12/29/24 @ 10:45 by DAMIAN Thomason) Housing: House Alcohol intake: never Patient Tobacco Use Status: Never used Tobacco e-Cigarette/Vaping Use: Never Used service: No Current occupational status: retired Current occupation: left handed Cognitive needs: No Hearing needs: No Vision needs: Yes Review of Systems Const All systems reviewed & are unremarkable except as noted in HPI and below Physical Exam Vital Signs: BMI result Body Mass Index 26.6 Extrem Other: Patient is alert, oriented, and in no acute distress. Neuro: Normal sensation of the tips of all digits of the left hand at this time Vascular: Cap refill brisk Pain: No tenderness to palpation about the left wrist No snuffbox tenderness No tenderness to radial or ulnar styloid ROM: Patient is able to make a closed fist and extend all digits of the right hand fully and without difficulty Skin: No lacerations or abrasions. General: Minimal ecchymosis No erythema, or evidence of infection. Psych: Appears grossly normal Affect normal Attitude cooperative Office Procedures AMB Fracture Care Fracture Billing Code: Fracture Billing Code Casting/Splints 10789-Xaeh/Wrist Cast Application Procedure code (CPT) selection complete Results Reviewed Results Reviewed: X-rays obtained in the office today and independently reviewed by me, Dick Okeefe PA-C, demonstrate nondisplaced fracture of the left distal radius. Assessment & Plan Assessment & Plan (1) Distal radius fracture, left: Code(s): S52.502A - Unspecified fracture of the lower end of left radius, initial encounter for closed fracture Category: Medical Qualifiers: Encounter type: initial encounter Fracture type: closed Fracture morphology: unspecified fracture morphology Qualified Code(s): S52.502A - Unspecified fracture of the lower end of left radius, initial encounter for closed fracture Plan 1. Nondisplaced left distal radius fracture Date of injury 12/24/2024 Patient is educated about this injury Patient is educated about the typical treatment course At this time, patient is informed that due to the nondisplaced nature of the fracture, no surgical intervention is indicated Patient is placed into a short-arm cast at this time Patient is educated on proper cast care and precautions Patient is amenable to this plan Follow-up in 3 weeks with repeat x-rays for reassessment, anticipate cast removal at that time, sooner with any acute concerns Orders: Orders XR wrist LT min 3V Today M25.532 - Pain in left wrist Coding Level of Care Code New Pt Level 3 (11979) Diagnoses Closed fracture of distal end of left radius, unspecified fracture morphology, initial encounter S52.502A Encounter type: initial encounter Fracture type: closed Fracture morphology: unspecified fracture morphology CPT Codes Fracture Care - Fracture Billing Code: Fracture Billing Code ([id number]) Casting - CPT: 84782-Rpow/Wrist Cast Application ([id number])
== END 2024-12-29 11:11 | disposition home or self-care (01) ==
LOC: HO.HOS 10:25
PROVIDERS: PCP Internal Medicine
DX: S52.592A Other fractures of lower end of left radius, initial encounter for closed fracture (principal)
CPT/HCPCS: 25600; 99203

== ENCOUNTER → 2024-12-29 10:26 | Outpatient (BNV) | payer MEDICARE, SELFPAY | PROVIDERS: Visit Provider Student in an Organized Health Care Education/Training Program | DX: M25.532 Pain in left wrist (principal) | CPT/HCPCS: 73110 ==

== ENCOUNTER 2025-01-20 09:44 | Outpatient (REF) | payer MEDICARE, SELFPAY ==
--- NOTE | ~2025-01-20 | XR_ITS ---
EXAMINATION: XR WRIST 3 OR MORE VIEWS LEFT HISTORY: M25.532 - Pain in left wrist COMPARISON: Comparison is made with the prior examination dated 12/29/2024. FINDINGS: Three views of the left wrist are submitted. The bones are osteopenic. Again seen is a nondisplaced transverse fracture of the distal radial metaphysis. There is slightly greater sclerosis at the fracture site, consistent with healing. The joint spaces are preserved. The soft tissues are unremarkable. XR/XR wrist LT min 3V IMPRESSION: Osteopenia. Healing nondisplaced transverse fracture of the distal radial metaphysis. Electronically signed by: Herman Huffman MD 01/20/2025 03:47 PM EDT
== END 2025-01-20 09:45 | disposition home or self-care (01) ==
LOC: HO.HOSX 09:44
DX: M25.532 Pain in left wrist (principal); S52.502A Unspecified fracture of the lower end of left radius, initial encounter for closed fracture
CPT/HCPCS: 73110; 99212

== ENCOUNTER 2025-01-20 13:21 | Outpatient (AMB) | payer MEDICARE, SELFPAY ==
--- NOTE | 2025-01-20 14:15 | MHC.OFFVIS ---
Vital Signs 01/20/25 14:21 Height 5 ft 4 in Weight 155 lb BMI 26.6 Handedness Left Intake Visit Reasons: OV- Left distal radius fx DOI 12/24/24 Intake Note: Padmaja is a 84 year old left hand dominant female who presents today for a follow up visit for her left distal radius fracture, DOI: 12/24/24. Short arm cast removed and x-rays updated today. Patient reports now that her cast is off she feels numbness and stiffness in the entire right hand. She reports concern for swelling on the volar aspect of the left wrist. Allergies Sulfa (Sulfonamide Antibiotics) Allergy (Unknown, Verified 01/20/25 14:24) cough, itching lisinopril Adverse Reaction (Unknown, Verified 01/20/25 14:24) cough HPI HPI OV- Left distal radius fx DOI 12/24/24: Details: Padmaja is a 84 year old left hand dominant female who presents today for a follow up visit for her left distal radius fracture, DOI: 12/24/24. Short arm cast removed and x-rays updated today. Patient reports now that her cast is off she feels numbness and stiffness in the entire right hand. She reports concern for swelling on the volar aspect of the left wrist. Denies any ongoing pain in the left wrist. No other acute complaints or concerns at this time. [facility] Medical History (Updated 01/20/25 @ 14:25 by JADA López) Distal radius fracture, left (~12/24/24) Essential hypertension First degree AV block Refused influenza vaccine Refused pneumococcal vaccine Dermatitis Dyslipidemia Hx of fibrocystic disease of breast Post-menopause Osteopenia of both hips Surgical History Hx of colonoscopy Hx of breast biopsy Family History Father No problems noted. Mother No problems noted. Social History Housing: House Alcohol intake: never Patient Tobacco Use Status: Never used Tobacco e-Cigarette/Vaping Use: Never Used service: No Current occupational status: retired Current occupation: left handed Cognitive needs: No Hearing needs: No Vision needs: Yes Review of Systems Const All systems reviewed & are unremarkable except as noted in HPI and below Physical Exam Vital Signs: BMI result Body Mass Index 26.6 Extrem Other: Patient is alert, oriented, and in no acute distress. Neuro: Normal sensation of the tips of all digits of the left hand at this time Vascular: Cap refill brisk Pain: No tenderness to palpation about the left wrist No snuffbox tenderness No tenderness to radial or ulnar styloid ROM: Patient is able to make a closed fist and extend all digits of the right hand fully and without difficulty Skin: No lacerations or abrasions. There is an area of irritation in the proximal forearm, consistent with cast rubbing General: Minimal ecchymosis No erythema, or evidence of infection. Psych: Appears grossly normal Affect normal Attitude cooperative Results Reviewed Results Reviewed: X-rays obtained in the office today and independently reviewed by me, Dick Okeefe PA-C, demonstrate nondisplaced fracture of the left distal radius with evidence of interval bony healing. Assessment & Plan Assessment & Plan (1) Distal radius fracture, left: Onset Date: ~12/24/24 Code(s): S52.502A - Unspecified fracture of the lower end of left radius, initial encounter for closed fracture Category: Medical Qualifiers: Encounter type: initial encounter Fracture type: closed Fracture morphology: unspecified fracture morphology Qualified Code(s): S52.502A - Unspecified fracture of the lower end of left radius, initial encounter for closed fracture Plan 1. Nondisplaced left distal radius fracture Date of injury 12/24/2024 Patient is educated about this injury Patient is educated about the typical treatment course At this time, patient is informed that due to the nondisplaced nature of the fracture, no surgical intervention is indicated Patient is placed into a volar wrist splint to be worn with daytime activities Patient is educated she should remove the splint while at home and at rest to work on range of motion of the left wrist and hand Patient is amenable to this plan Follow-up in 4 weeks with repeat x-rays for reassessment, anticipate cast removal at that time, sooner with any acute concerns Orders: Orders XR wrist LT min 3V Today M25.532 - Pain in left wrist Coding Level of Care Code Global (16799) Diagnoses Closed fracture of distal end of left radius, unspecified fracture morphology, initial encounter S52.502A Encounter type: initial encounter Fracture type: closed Fracture morphology: unspecified fracture morphology
[2025-01-20 14:21] VITALS: BMI 26.6
== END 2025-01-20 14:45 | disposition home or self-care (01) ==
LOC: HO.HOS 13:22
DX: S52.502A Unspecified fracture of the lower end of left radius, initial encounter for closed fracture (principal)
CPT/HCPCS: 99024

== ENCOUNTER → 2025-01-20 13:28 | Outpatient (BNV) | payer MEDICARE, SELFPAY | PROVIDERS: Visit Provider Radiology Diagnostic Radiology | DX: M25.532 Pain in left wrist (principal) | CPT/HCPCS: 73110 ==

== ENCOUNTER 2025-02-12 07:26 | Outpatient (REF) | payer MEDICARE, SELFPAY ==
--- NOTE | ~2025-02-12 | XR_ITS ---
EXAMINATION: XR WRIST, LEFT CLINICAL INFORMATION: M25.532 - Pain in left wrist COMPARISON: None available. TECHNIQUE: PA, lateral, and oblique views of the left wrist. FINDINGS: There is osteopenia. Redemonstration of transverse radial metaphyseal fracture, unchanged in alignment. Increasing sclerosis at the fracture margins consistent with healing. No new fractures. Carpal bones intact and normally aligned. Improving soft tissue swelling dorsally. XR/XR wrist LT min 3V IMPRESSION: Osteopenia. Healing nondisplaced transverse fracture of the distal radial metaphysis. Electronically signed by: Domenic Pandya MD 02/12/2025 02:20 PM EDT
== END 2025-02-12 07:27 | disposition home or self-care (01) ==
LOC: HO.HOSX 07:26
DX: M25.532 Pain in left wrist (principal); S52.502A Unspecified fracture of the lower end of left radius, initial encounter for closed fracture; M85.80 Other specified disorders of bone density and structure, unspecified site
CPT/HCPCS: 73110; 99212

== ENCOUNTER 2025-02-12 12:56 | Outpatient (AMB) | payer MEDICARE, SELFPAY ==
--- NOTE | 2025-02-12 12:57 | A.OFFVIS_ITS ---
Vital Signs 02/12/25 13:11 Height 5 ft 4 in Weight 155 lb BMI 26.6 Handedness Left Intake Visit Reasons: OV- Left distal radius fx DOI 12/24/24 Intake Note: Padmaja is a 84 year old left hand dominant female who presents today for a follow up visit for her left distal radius fracture, DOI: 12/24/24. Patient reports her left wrist feels good. She states she has no pain with any movement of her wrist. States she has some very mild stiffness in the wrist. Denies numbness and tingling. Allergies Sulfa (Sulfonamide Antibiotics) Allergy (Unknown, Verified 02/12/25 13:11) cough, itching lisinopril Adverse Reaction (Unknown, Verified 02/12/25 13:11) cough HPI HPI OV- Left distal radius fx DOI 12/24/24: Details: Padmaja is a 84 year old left hand dominant female who presents today for a follow up visit for her left distal radius fracture, DOI: 12/24/24. Patient reports her left wrist feels good. She states she has no pain with any movement of her wrist. States she has some very mild stiffness in the wrist. Denies numbness and tingling. Patient reports that she has been getting back to doing yard work with no increase in pain. [facility] Medical History Distal radius fracture, left (~12/24/24) Essential hypertension First degree AV block Refused influenza vaccine Refused pneumococcal vaccine Dermatitis Dyslipidemia Hx of fibrocystic disease of breast Post-menopause Osteopenia of both hips Surgical History Hx of colonoscopy Hx of breast biopsy Family History Father No problems noted. Mother No problems noted. Social History Housing: House Alcohol intake: never Patient Tobacco Use Status: Never used Tobacco e-Cigarette/Vaping Use: Never Used service: No Current occupational status: retired Current occupation: left handed Cognitive needs: No Hearing needs: No Vision needs: Yes Review of Systems Const All systems reviewed & are unremarkable except as noted in HPI and below Physical Exam Vital Signs: BMI result Body Mass Index 26.6 Extrem Other: Patient is alert, oriented, and in no acute distress. Neuro: Normal sensation of the tips of all digits of the left hand at this time Vascular: Cap refill brisk Pain: No tenderness to palpation about the left wrist No snuffbox tenderness No tenderness to radial or ulnar styloid ROM: Patient is able to make a closed fist and extend all digits of the right hand fully and without difficulty Patient is able to flex the left wrist to approximately 60 degrees and extend to approximately 50 degrees without difficulty Skin: No lacerations or abrasions. General: Minimal ecchymosis No erythema, or evidence of infection. Psych: Appears grossly normal Affect normal Attitude cooperative Results Reviewed Results Reviewed: X-rays obtained in the office today and independently reviewed by me, Dick Okeefe PA-C, demonstrate nondisplaced fracture of the left distal radius with evidence of interval bony healing. Assessment & Plan Assessment & Plan (1) Distal radius fracture, left: Onset Date: ~12/24/24 Code(s): S52.502A - Unspecified fracture of the lower end of left radius, initial encounter for closed fracture Category: Medical Qualifiers: Encounter type: initial encounter Fracture type: closed Fracture morphology: unspecified fracture morphology Qualified Code(s): S52.502A - Unspecified fracture of the lower end of left radius, initial encounter for closed fracture Plan 1. Left distal radius fracture Date of injury 12/24/2024 Patient appears to be recovering very well from her injury Patient is educated about the typical recovery course At this time, patient is educated that she can slowly begin to increase her weightlifting capacity over the next 3-4 weeks, with an increase to approximately 5-10 lb over the next 2 weeks and then gradually returning to full normal lifting Patient is also educated that she only needs to wear the Velcro wrist splint and particularly high-risk situations for the next 3-4 weeks Patient understands this and is amenable to this plan Patient may follow-up as needed with any acute concerns Orders: Orders XR wrist LT min 3V Today M25.532 - Pain in left wrist Coding Level of Care Code Global (45617) Diagnoses Closed fracture of distal end of left radius, unspecified fracture morphology, initial encounter S52.502A Encounter type: initial encounter Fracture type: closed Fracture morphology: unspecified fracture morphology
[2025-02-12 13:11] VITALS: BMI 26.6
== END 2025-02-12 13:29 | disposition home or self-care (01) ==
LOC: HO.HOS 12:56
DX: S52.502A Unspecified fracture of the lower end of left radius, initial encounter for closed fracture (principal)
CPT/HCPCS: 99024

== ENCOUNTER → 2025-02-12 13:01 | Outpatient (BNV) | payer MEDICARE, SELFPAY | PROVIDERS: Visit Provider Radiology Diagnostic Radiology | DX: M85.842 Other specified disorders of bone density and structure, left hand (principal) | CPT/HCPCS: 73110 ==

== ENCOUNTER 2025-03-30 06:24 | Outpatient (REF) | payer MEDICARE, SELFPAY ==
--- NOTE | ~2025-03-30 | MM_ITS ---
EXAMINATION: MM SCREENING DIGITAL BREAST TOMOSYNTHESIS, BILATERAL CLINICAL INFORMATION: Screening. Asymptomatic. COMPARISON: Mammography: Comparison is made with available priors TECHNIQUE: Digital breast mammography with tomosynthesis is performed in both the craniocaudal and mediolateral oblique views along with computer-aided detection (CAD). FINDINGS: There are scattered areas of fibroglandular density (ACR BI-RADS breast composition Category b). Bilateral marker clips. There are no significant masses, abnormal calcifications, or other abnormalities. MM/MM tomosynthesis screening BI IMPRESSION: No mammographic evidence of malignancy. ASSESSMENT: BI-RADS BI-RADS 2 - Benign Findings RECOMMENDATION: Routine annual mammography screening. 1 year F/U This examination should not preclude the clinical evaluation of a suspicious palpable abnormality. This patient's information was entered into a reminder system with a target due date for their next mammogram. Electronically signed by: Edilma Valiente DO 04/09/2025 02:23 PM EDT
[2025-03-30 11:06] LABS: Alanine Aminotransferase 12 U/L (0-31); Anion Gap 10 (12-20); Aspartate Amino Transferase 29 U/L (5-31); Blood Urea Nitrogen 16 mg/dL (9-16); Calcium 9.1 mg/dL (8.4-10.2); Carbon Dioxide 26 mmol/L (22-29); Chloride 107 mmol/L (96-108); Cholesterol 178 mg/dL (<200); Estimated Glomerular Filt Rate 58; HDL Cholesterol 30 mg/dL (>40); Potassium 3.8 mmol/L (3.3-5.1); Sodium 139 mmol/L (135-145); Triglycerides 206 mg/dL (<150)
== END 2025-03-30 06:25 | disposition home or self-care (01) ==
LOC: HO.MAMMO 06:24
PROVIDERS: PCP Internal Medicine; Visit Provider Internal Medicine
DX: Z00.01 Encounter for general adult medical examination with abnormal findings (principal); E78.5 Hyperlipidemia, unspecified; M85.851 Other specified disorders of bone density and structure, right thigh; M85.852 Other specified disorders of bone density and structure, left thigh; I10 Essential (primary) hypertension; Z28.21 Immunization not carried out because of patient refusal; Z12.31 Encounter for screening mammogram for malignant neoplasm of breast
CPT/HCPCS: 36415; 77063; 77067; 80048; 80061; 82306; 84450; 84460

== ENCOUNTER → 2025-03-30 14:45 | Outpatient (BNV) | payer MEDICARE, SELFPAY | PROVIDERS: PCP Internal Medicine; Visit Provider Internal Medicine | DX: Z12.31 Encounter for screening mammogram for malignant neoplasm of breast (principal) | CPT/HCPCS: 77063; 77067 ==

== ENCOUNTER 2025-03-31 10:45 | Outpatient (AMB) | payer MEDICARE, SELFPAY ==
[2025-03-31 11:15] VITALS: BP 120/64; PULSE 52; RESP 16; TEMP 36.9; O2SAT 97; BMI 26.3
--- NOTE | 2025-03-31 11:15 | MHC.PC.OV ---
Vital Signs 03/31/25 11:15 Height 5 ft 4 in Weight 153 lb BMI 26.3 BP 120/64 Blood Pressure Location Rt brachial Position Sitting Respiration 16 Pulse 52 Pulse Source Pulse Oximeter Temp 98.4 F Temp Source Oral Pulse Oximetry (%) 97 Oxygen Delivery Method Room Air Intake Visit Reasons: PE Intake Note: Pt is here today for her PE: last bone density scan 02/28/23, mammogram 03/30/25 Allergies Sulfa (Sulfonamide Antibiotics) Allergy (Unknown, Verified 03/31/25 11:16) cough, itching lisinopril Adverse Reaction (Unknown, Verified 03/31/25 11:16) cough Medication List - Last Reconciled 04/05/25 by Rocio Clarke MD amlodipine 10 mg PO DAILY brimonidine 0.2% 1 drp ophthalmic (eye) Q12H cholecalciferol (vitamin D3) 50 mcg PO DAILY dorzolamide 2% 1 drp ophthalmic (eye) Q12H latanoprost 0.005% 1 drp ophthalmic (eye) BEDTIME multivitamin 1 tab PO DAILY netarsudil 0.02% (Rhopressa) 1 drp ophthalmic-Left QPM simvastatin 10 mg PO QPM timolol maleate 0.5% 1 drp ophthalmic (eye) BID vit [id number] mg (Bioflex) tabs PO Tobacco use date assessed: 03/31/25 Fall risk assessment: 1 Fall in past year Last assessed Fall Risk: 03/31/25 Dental Screening Dental Screen Date: 03/31/25 Did you have a dental visit in the last 12 months?: No Did you have a dental problem in the last 6 months where you did not have access to dental care?: No Was dental information given to patient?: Patient has dentist HPI PE HPI Details - The patient is an 84-year-old female history of osteopenia, hyperlipidemia, hypertension, impaired fasting glucose, and history of this is a radial fracture on left status post fall, here today for her physical exam. - Osteopenia: The patient has a history of osteopenia, particularly noted in the left hip and femur, which has been monitored since 2022. - Hyperlipidemia: The patient has experienced an increase in triglycerides from 65 to 206 and LDL cholesterol from 79 to 107, attributed to dietary habits including consumption of junk food such as potato chips and ice cream, contributing to elevated cholesterol levels. The patient engages in some physical activity, such as walking around her property and cutting grass, but reports knee pain limiting regular exercise. - Hypertension: The patient is on Amlodipine 10 mg daily for blood pressure management, with blood pressure well controlled on present treatment. - Elevated blood glucose: The patient's blood glucose level increased from 94 to 101, possibly due to dietary indiscretions. - History of distal radius fracture: The patient previously sustained a fracture to the left distal radius after a fall on uneven pavement. Last bone density scan done in 2022 showed presence of osteopenia in left femoral neck and left femur, normal in lumbar spine. [facility] Medical History (Updated 03/31/25 @ 11:47 by Rocio Clarke MD) Hx of fracture of wrist Distal radius fracture, left (~12/24/24) Essential hypertension First degree AV block Refused influenza vaccine Refused pneumococcal vaccine Dermatitis Dyslipidemia Hx of fibrocystic disease of breast Post-menopause Osteopenia of both hips Surgical History Hx of colonoscopy Hx of breast biopsy Family History Father No problems noted. Mother No problems noted. Social History Housing: House Alcohol intake: never Patient Tobacco Use Status: Never used Tobacco e-Cigarette/Vaping Use: Never Used service: No Current occupational status: retired Current occupation: left handed Cognitive needs: No Hearing needs: No Vision needs: Yes Questionnaire PHQ-9 Over the last 2 weeks, how often have you been bothered by any of the following problems? 1. Little interest or pleasure in doing things: not at all 2. Feeling down, depressed, or hopeless: not at all 3. Trouble falling or staying asleep, or sleeping too much: not at all 4. Feeling tired or having little energy: not at all 5. Poor appetite or overeating: not at all 6. Feeling bad about yourself - or that you are a failure or have let yourself or your family down: not at all 7. Trouble concentrating on things, such as reading the newspaper or watching television: not at all 8. Moving or speaking so slowly that other people could have noticed. Or the opposite - being so fidgety or restless that you have been moving around a lot more than usual: not at all 9. Thoughts that you would be better off or of hurting yourself in some way: not at all Total score: 0 Depression Screening Interpretation: Negative Depression Screening Done: Yes 76719 - PHQ-9 Billing: Yes Source: Developed by Drs. Herman Jacobo, Ksenia Le, Luis Milian and colleagues, with an educational zeyad from [employer]. Thrive Questionnaire Date Thrive assessed: 03/31/25 I am a: Patient What is your living situation today?: I have a steady place to live Within the past 12 months, did the food you bought not last and you didn't have the money to get more?: Never true Within the past 12 months, did you worry whether your food would run out before you got money to buy more?: Never true Do you have trouble paying for medicines?: No Do you have trouble getting transportation to medical appointments?: No Do you have trouble paying your heating and electricity bill?: No Do you have trouble taking care of your child, family member or friend?: No Do you have trouble with day-to-day activities such as bathing, preparing meals, shopping, managing finances, etc.?: No Are you currently unemployed and looking for a job?: No Are you interested in more education?: No Please select the resources that you would like help with: None THRIVE Score: 0 AUDIT C Alcohol Use Questionnaire (AUDIT-C) 1. How often do you have a drink containing alcohol?: Never Total Score: 0 Score Reviewed/Action Taken: Yes TAM-7 AMB Questionnaire TAM-7 Date TAM - 7 assessed: 03/31/25 Feeling nervous, anxious, or on edge: 0 = Not at all Not being able to stop or control worryin = Not at all Worrying too much about different things: 0 = Not at all Trouble relaxin = Not at all Being so restless that it is hard to sit still: 0 = Not at all Becoming easily annoyed or irritable: 0 = Not at all Feeling afraid as if something awful might happen: 0 = Not at all Total TAM-7 score (0-4 normal; 5-9 mild; 10-14 moderate; 15-21 severe): 0 Source: Developed by Drs. Herman Jacobo, Ksenia Le, Luis Milian and colleagues, with an educational zeyad from [employer]. TAM-7 Assessment Billing TAM-7 Assessment Tool: TAM-7 Assessment 09453 Review of Systems Const Denies fatigue, Denies fever(s), Denies headache(s), Denies poor appetite and Denies weakness Eyes Details: Sees Dr. Reyes, ENT Reports Normal hearing present, Denies dizziness, Denies headache(s), Denies nasal congestion, Denies nasal discharge and Denies sore throat Card Denies chest pain, Denies lightheadedness, Denies palpitations and Denies orthopnea Resp Denies chest congestion, Denies cough and Denies wheezing GI Denies abdominal pain, Denies melena, Denies hematochezia, Denies change in bowel habits and Denies heartburn Denies urinary frequency, Denies dysuria and Denies urinary urgency Musc Details: Occasional stiffness in hips Denies abnormal gait, Denies myalgias and Denies arthralgias Skin/Breast Denies lesions and Denies rash Neuro Reports Normal hearing present, Denies abnormal gait, Denies dizziness, Denies headache(s) and Denies weakness Psych Reports no additional complaints Endo Denies fatigue, Denies polydipsia, Denies polyuria and Denies palpitations Fabio/Lymph Denies easy bleeding and Denies easy bruising Aller/Immun Denies seasonal rhinorrhea and Denies wheezing Physical exam (Primary Care) Vital Signs: Last Vital Signs Temp 98.4 F 03/31/25 11:15 Pulse 52 03/31/25 11:15 Resp 16 03/31/25 11:15 BP 120/64 03/31/25 11:15 Pulse Ox 97 03/31/25 11:15 Oxygen Delivery Method Room Air 03/31/25 11:15 BMI result Body Mass Index 26.3 Tobacco/Smoking Status: Tobacco use Status Tobacco use date assessed 03/31/25 03/31/25 11:17 Patient Tobacco Use Status Never used Tobacco 03/31/25 11:17 e-Cigarette/Vaping Use Never Used 03/31/25 11:17 PHQ-9: PHQ-9 Score PHQ-9: Total score 0 03/31/25 11:50 Depression Screening Interpretation: Negative Thrive Assessment: Date of Thrive Assessment Date Thrive assessed 03/31/25 03/31/25 11:30 Const General: comfortable, no acute distress and alert Orientation/consciousness: patient oriented x3 HENMT Ears: external ears normal Eyes General: appearance normal, both eyes and all related structures Neck Neck: Yes full ROM, Yes no lymphadenopathy and Yes supple Resp Effort & Inspection: normal respiratory effort and able to speak in complete sentences Auscultation: clear to auscultation bilaterally Cardio Rate: regular rate Rhythm: regular rhythm Heart sounds: S1 normal heart sound present and S2 normal heart sound present GI Palpation (GI): Soft to palpation, nontender and no masses Auscultation: normal bowel sounds Back/Spine/Pelvis Back: No back tenderness Skin General skin exam: no rashes or lesions noted Neuro General: patient oriented x3, gait normal, tone normal, moves all extremities, Normal light touch and pain sensation and no focal motor deficits Cranial nerves: Yes Normal hearing present Cognition (Neuro): normal cognition Extrem General: Yes full ROM, Yes no joint enlargement, Yes no clubbing, cyanosis or edema and Yes no calf tenderness Psych Appearance: grossly normal and well kempt Mental Status: mental status grossly normal Speech and movement: Normal speech and movement present Affect: normal affect Results Reviewed Results Reviewed: - Labs: Electrolytes normal, kidney function slightly decreased, blood glucose elevated at 101 mg/dL, triglycerides elevated at 206 mg/dL, LDL cholesterol elevated at 107 mg/dL. - Imaging: Echocardiogram normal with mild calcification in aortic and mitral valves, no significant findings. Coding Level of Care Code Est Pt Prev Care >65y(73739) Diagnoses Osteopenia of both hips M85.851; M85.852 Additional Codes TAM-7 Assessment Billing - TAM-7 Assessment Tool: TAM-7 Assessment 14604 ([id number]) PHQ-9 - 94017 - PHQ-9 Billing: Yes ([id number]) Assessment & Plan Assessment & Plan (1) Osteopenia of both hips: Code(s): M85.851 - Other specified disorders of bone density and structure, right thigh; M85.852 - Other specified disorders of bone density and structure, left thigh Category: Medical Plan The patient will continue with Amlodipine for hypertension management and Simvastatin for hyperlipidemia, with a focus on dietary modifications to reduce cholesterol levels. A bone density scan has been ordered to monitor osteopenia, and vitamin D levels will be checked to assess for any deficiencies. The patient is advised to increase water intake to improve kidney function and to engage in regular, low-impact exercise to manage weight and improve cardiovascular health. Follow-up appointments are scheduled for July, with lab work to be completed prior to the visit to assess cholesterol and vitamin D levels. Patient was informed and verbally consented to the use of an ambient scribe for clinic note documentation during this visit. Orders: Orders Lipid Panel 07/25/25 E78.5 - Hyperlipidemia, unspecified, I10 - Essential (primary) hypertension, M85.851 - Other specified disorders of bone density and structure, right thigh, M85.852 - Other specified disorders of bone density and structure, left thigh Vitamin D 25-OH Total 07/25/25 E78.5 - Hyperlipidemia, unspecified, I10 - Essential (primary) hypertension, M85.851 - Other specified disorders of bone density and structure, right thigh, M85.852 - Other specified disorders of bone density and structure, left thigh Aspartate Amino Transferase 07/25/25 E78.5 - Hyperlipidemia, unspecified, I10 - Essential (primary) hypertension, M85.851 - Other specified disorders of bone density and structure, right thigh, M85.852 - Other specified disorders of bone density and structure, left thigh Basic Metabolic Panel Fasting 07/25/25 E78.5 - Hyperlipidemia, unspecified, I10 - Essential (primary) hypertension, M85.851 - Other specified disorders of bone density and structure, right thigh, M85.852 - Other specified disorders of bone density and structure, left thigh XR DEXA axial skeleton 03/31/25 M85.851 - Other specified disorders of bone density and structure, right thigh, M85.852 - Other specified disorders of bone density and structure, left thigh, Z87.81 - Personal history of (healed) traumatic fracture Alanine Aminotransferase 07/25/25 E78.5 - Hyperlipidemia, unspecified, I10 - Essential (primary) hypertension, M85.851 - Other specified disorders of bone density and structure, right thigh, M85.852 - Other specified disorders of bone density and structure, left thigh
--- OUTSIDE RECORDS SUMMARY | 2025-03-31 11:29 | XMS_ITS | Patient Health Record ---
[facility] Organization [facility] Address [address] [place] [id number] Care Team Providers Care Biomedical Scientist Name Role Phone Kvng Bowman Jr Reason For Referral No Information Plan Of Treatment No Information
== END 2025-03-31 11:56 | disposition home or self-care (01) ==
LOC: HO.HMCC 10:46
PROVIDERS: PCP Internal Medicine; Visit Provider Internal Medicine
DX: Z00.00 Encounter for general adult medical examination without abnormal findings (principal); M85.851 Other specified disorders of bone density and structure, right thigh; M85.852 Other specified disorders of bone density and structure, left thigh

== ENCOUNTER → 2025-03-31 10:45 | Outpatient (BNVA) | payer MEDICARE, SELFPAY | PROVIDERS: PCP Internal Medicine; Visit Provider Internal Medicine | DX: M85.851 Other specified disorders of bone density and structure, right thigh (principal); M85.852 Other specified disorders of bone density and structure, left thigh; E78.5 Hyperlipidemia, unspecified; I10 Essential (primary) hypertension; R73.01 Impaired fasting glucose; Z87.81 Personal history of (healed) traumatic fracture | CPT/HCPCS: 96127; 99397 ==

== ENCOUNTER → 2025-05-04 08:45 | Outpatient (BNV) | payer MEDICARE, SELFPAY | PROVIDERS: PCP Internal Medicine; Visit Provider Radiology Diagnostic Radiology | DX: E28.39 Other primary ovarian failure (principal) | CPT/HCPCS: 77080 ==

== ENCOUNTER 2025-05-04 08:46 | Outpatient (REF) | payer MEDICARE, SELFPAY ==
--- NOTE | ~2025-05-04 | MM_ITS ---
EXAMINATION: DXA BONE DENSITY AXIAL HISTORY: M85.851 - Other specified disorders of bone density and structure, right... TECHNIQUE: hiyalife Dual energy absorptiometry (DEXA) of the lumbar spine, total left hip, and femoral neck was performed. COMPARISON: Comparison is made with the prior examination dated 02/28/2023. FINDINGS: The bone mineral density of the lumbar spine is 1.246 g/cm2, corresponding to a T-score of 0.4, and a Z-score of 2.2. This is indicative of normal bone mineral density. This represents a BMD change of 3.6% compared to the prior exam. This is statistically significant. The bone mineral density of the left total hip is 0.808 g/cm2, corresponding to a T-score of -1.6, and a Z-score of 0.6. This is indicative of osteopenia. This represents a BMD change of 4.1% compared to the prior exam. This is not statistically significant. The bone mineral density of the left femoral neck is 0.897 g/cm2, corresponding to a T-score of -1.0, and a Z-score of 1.3. This is indicative of normal bone mineral density. This represents a BMD change of 10.6% compared to the prior exam. FRACTURE RISK: The FRAX index suggests a ten year probability of major osteoporotic fracture of 11.9%, and of hip fracture 2.7%. MM/XR DEXA axial skeleton IMPRESSION: Based on bone mineral density, and according to World Health Organization (WHO) criteria, the diagnosis is consistent with osteopenia. Statistically, 68% of repeat scans fall within 1 SD (+/- 0.010 g/cm2 for AP spine L1-L4) and 1 SD (+/- 0.012 g/cm2 for femur total) FRAX is a trademark of the [employer] [place] [employer] Metabolic [employer], a World Health Organization (WHO) Collaborating Center. Electronically signed by: Herman Huffman MD 05/04/2025 09:42 AM EDT
--- OUTSIDE RECORDS SUMMARY | 2025-05-04 09:49 | XMS_ITS | Patient Health Record ---
[facility] Address [address] [place] [id number] Care Team Providers Care Pet Care Attendant Name Role Phone Kvng Bowman Jr [phone] Reason For Referral No Information Plan Of Treatment No Information
== END 2025-05-04 08:47 | disposition home or self-care (01) ==
LOC: HO.MAMMO 08:46
PROVIDERS: PCP Internal Medicine; Visit Provider Internal Medicine
DX: Z13.820 Encounter for screening for osteoporosis (principal); M85.851 Other specified disorders of bone density and structure, right thigh; M85.852 Other specified disorders of bone density and structure, left thigh; Z87.81 Personal history of (healed) traumatic fracture
CPT/HCPCS: 77080

== ENCOUNTER 2025-07-25 09:15 | Outpatient (REF) | payer MEDICARE, SELFPAY ==
--- OUTSIDE RECORDS SUMMARY | 2025-07-25 09:19 | XMS_ITS | Patient Health Record ---
[facility] Organization [facility] Address [address] [place] [id number] Care Team Providers Care Credit Associate Name Role Phone Kvng Bowman Jr Reason For Referral No Information Plan Of Treatment No Information
[2025-07-25 11:38] LABS: Alanine Aminotransferase 12 U/L (0-31); Anion Gap 10 (12-20); Aspartate Amino Transferase 24 U/L (5-31); Blood Urea Nitrogen 17 mg/dL (9-16); Calcium 9.3 mg/dL (8.4-10.2); Carbon Dioxide 25 mmol/L (22-29); Chloride 108 mmol/L (96-108); Cholesterol 125 mg/dL (<200); Estimated Glomerular Filt Rate 46; HDL Cholesterol 38 mg/dL (>40); Potassium 4.0 mmol/L (3.3-5.1); Sodium 139 mmol/L (135-145); Triglycerides 78 mg/dL (<150)
== END 2025-07-25 09:16 | disposition home or self-care (01) ==
LOC: HO.HMGCLDS 09:15
PROVIDERS: PCP Internal Medicine; Visit Provider Internal Medicine
DX: I10 Essential (primary) hypertension (principal); E78.5 Hyperlipidemia, unspecified; M85.851 Other specified disorders of bone density and structure, right thigh; M85.852 Other specified disorders of bone density and structure, left thigh
CPT/HCPCS: 36415; 80048; 80061; 82306; 84450; 84460

== ENCOUNTER 2025-07-29 08:31 | Outpatient (AMB) | payer MEDICARE, SELFPAY ==
[2025-07-29 08:44] VITALS: BP 120/60; PULSE 81; RESP 16; TEMP 36.3; O2SAT 98; BMI 25.1
--- NOTE | 2025-07-29 08:44 | MHC.PC.OV ---
Vital Signs 07/29/25 08:44 Height 5 ft 4 in Weight 146 lb BMI 25.1 BP 120/60 Blood Pressure Location Lt brachial Position Sitting Respiration 16 Pulse 81 Pulse Source Pulse Oximeter Temp 97.4 F Temp Source Oral Pulse Oximetry (%) 98 Oxygen Delivery Method Room Air Intake Visit Reasons: 4m follow up Tile Roofer Required: No Allergies Sulfa (Sulfonamide Antibiotics) Allergy (Unknown, Verified 07/29/25 09:04) cough, itching lisinopril Adverse Reaction (Unknown, Verified 07/29/25 09:04) cough Medication List - Last Reconciled 07/29/25 by Rocio Clarke MD amlodipine 10 mg PO DAILY brimonidine 0.2% 1 drp ophthalmic (eye) Q12H cholecalciferol (vitamin D3) 50 mcg PO DAILY dorzolamide 2% 1 drp ophthalmic (eye) Q12H latanoprost 0.005% 1 drp ophthalmic (eye) BEDTIME multivitamin 1 tab PO DAILY netarsudil 0.02% (Rhopressa) 1 drp ophthalmic-Left QPM simvastatin 10 mg PO QPM timolol maleate 0.5% 1 drp ophthalmic (eye) BID vit [id number] mg (Bioflex) tabs PO Tobacco use date assessed: 07/29/25 Fall risk assessment: 1 Fall in past year Last assessed Fall Risk: 07/29/25 Dental Screening Dental Screen Date: 07/29/25 Did you have a dental visit in the last 12 months?: No Did you have a dental problem in the last 6 months where you did not have access to dental care?: No Was dental information given to patient?: Patient has dentist HPI 4m follow up HPI Details 85-year-old lady with past medical history significant for hypertension, dyslipidemia, osteopenia of hip, and glaucoma followed by Dr. Reyes, here today for her follow-up. She has been feeling well, still active, lives with her daughter, still does her own housework and still shovels her driveway. Compliant with her medications, and now is becoming vegetarian, as her daughter is 1 who now lives with her. Had recent fasting labs done which showed fasting glucose at 107 mg/dL, with hemoglobin A1c at 5.5% her fasting lipids are within normal limits as well as her vitamin-D level [facility] Medical History (Updated 07/29/25 @ 09:25 by Rocio Clarke MD) Hx of fracture of wrist Distal radius fracture, left (~12/24/24) Essential hypertension First degree AV block Refused influenza vaccine Refused pneumococcal vaccine Dermatitis Dyslipidemia Hx of fibrocystic disease of breast Post-menopause Osteopenia of both hips Surgical History Hx of colonoscopy Hx of breast biopsy Family History Father No problems noted. Mother No problems noted. Social History Housing: House Alcohol intake: never Patient Tobacco Use Status: Never used Tobacco e-Cigarette/Vaping Use: Never Used service: No Current occupational status: retired Current occupation: left handed Cognitive needs: No Hearing needs: No Vision needs: Yes Questionnaire PHQ-9 Over the last 2 weeks, how often have you been bothered by any of the following problems? 1. Little interest or pleasure in doing things: not at all 2. Feeling down, depressed, or hopeless: not at all 3. Trouble falling or staying asleep, or sleeping too much: not at all 4. Feeling tired or having little energy: not at all 5. Poor appetite or overeating: not at all 6. Feeling bad about yourself - or that you are a failure or have let yourself or your family down: not at all 7. Trouble concentrating on things, such as reading the newspaper or watching television: not at all 8. Moving or speaking so slowly that other people could have noticed. Or the opposite - being so fidgety or restless that you have been moving around a lot more than usual: not at all 9. Thoughts that you would be better off or of hurting yourself in some way: not at all Total score: 0 Depression Screening Interpretation: Negative Depression Screening Done: Yes Source: Developed by Drs. Herman Jacobo, Ksenia Le, Luis Milian and colleagues, with an educational zeyad from [employer]. Thrive Questionnaire Date Thrive assessed: 03/31/25 AUDIT C Alcohol Use Questionnaire (AUDIT-C) 1. How often do you have a drink containing alcohol?: Never Total Score: 0 TAM-7 AMB Questionnaire TAM-7 Date TAM - 7 assessed: 03/31/25 Feeling nervous, anxious, or on edge: 0 = Not at all Not being able to stop or control worryin = Not at all Worrying too much about different things: 0 = Not at all Trouble relaxin = Not at all Being so restless that it is hard to sit still: 0 = Not at all Becoming easily annoyed or irritable: 0 = Not at all Feeling afraid as if something awful might happen: 0 = Not at all Total TAM-7 score (0-4 normal; 5-9 mild; 10-14 moderate; 15-21 severe): 0 Source: Developed by Drs. Herman Jacobo, Ksenia Le, Luis Milian and colleagues, with an educational zeyad from [employer]. Review of Systems Const Denies fatigue, Denies fever(s), Denies headache(s), Denies poor appetite and Denies weakness Eyes Details: Sees Dr. Reyes, followed for glaucoma ENT Reports Normal hearing present and Denies headache(s) Card Denies chest pain, Denies lightheadedness, Denies palpitations and Denies orthopnea Resp Denies chest congestion, Denies cough and Denies wheezing GI Denies abdominal pain, Denies melena, Denies hematochezia, Denies change in bowel habits and Denies heartburn Denies urinary frequency, Denies dysuria and Denies urinary urgency Musc Details: Occasional stiffness in hips Denies abnormal gait, Denies myalgias and Denies arthralgias Skin/Breast Denies lesions and Denies rash Neuro Reports Normal hearing present, Denies abnormal gait, Denies headache(s) and Denies weakness Psych Reports no additional complaints Endo Denies fatigue, Denies polydipsia, Denies polyuria and Denies palpitations Fabio/Lymph Denies easy bleeding and Denies easy bruising Aller/Immun Denies seasonal rhinorrhea and Denies wheezing Physical exam (Primary Care) Vital Signs: Last Vital Signs Temp 97.4 F 07/29/25 08:44 Pulse 81 07/29/25 08:44 Resp 16 07/29/25 08:44 BP 120/60 07/29/25 08:44 Pulse Ox 98 07/29/25 08:44 Oxygen Delivery Method Room Air 07/29/25 08:44 BMI result Body Mass Index 25.1 Tobacco/Smoking Status: Tobacco use Status Tobacco use date assessed 07/29/25 07/29/25 08:50 Patient Tobacco Use Status Never used Tobacco 07/29/25 08:44 e-Cigarette/Vaping Use Never Used 07/29/25 08:44 PHQ-9: PHQ-9 Score PHQ-9: Total score 0 07/29/25 09:06 Depression Screening Interpretation: Negative Thrive Assessment: Date of Thrive Assessment Date Thrive assessed 03/31/25 07/29/25 08:44 Const General: comfortable, no acute distress and alert Orientation/consciousness: patient oriented x3 HENMT Ears: external ears normal Eyes General: appearance normal, both eyes and all related structures Neck Neck: Yes full ROM, Yes no lymphadenopathy and Yes supple Resp Effort & Inspection: normal respiratory effort and able to speak in complete sentences Auscultation: clear to auscultation bilaterally Cardio Rate: regular rate Rhythm: regular rhythm Heart sounds: S1 normal heart sound present and S2 normal heart sound present GI Palpation (GI): Soft to palpation, nontender and no masses Auscultation: normal bowel sounds Back/Spine/Pelvis Back: No back tenderness Skin General skin exam: no rashes or lesions noted Neuro General: patient oriented x3, gait normal, tone normal, moves all extremities, Normal light touch and pain sensation and no focal motor deficits Cranial nerves: Yes Normal hearing present Cognition (Neuro): normal cognition Extrem General: Yes full ROM, Yes no joint enlargement, Yes no clubbing, cyanosis or edema and Yes no calf tenderness Psych Appearance: grossly normal and well kempt Mental Status: mental status grossly normal Speech and movement: Normal speech and movement present Affect: normal affect Results AMB Hemoglobin A1c AMB Hemoglobin A1c 5.5 % Last Edit by Norma Alvarez CMA on 07/29/25 09:05 Results Reviewed Results Reviewed: Laboratory Last Values Hgb A1c (Clinic) 5.5 % (4.0-6.0) 07/29/25 09:04 Name: Padmaja Casarez Age/Sex: 85/F : 1940 Unit#: [id number] Attend Dr: Rocio Clarke MD Re07/25/25 Status: DEP REF Location: [facility] Disch: SPEC : [id number] SHARLA: 07/25/25 STATUS: COMP REQ : [id number] RECD: 07/25/[address]: Rocio Clarke MD COMP: 07/25/25 ENTERED: 07/25/[address] [facility] [address]: ORDERED: Met Prof Fast, AST, ALT, Lipid Panel, Vitamin D 25-OH Test Result Flag Reference Sodium 139 135-145 mmol/L Potassium 4.0 3.3-5.1 mmol/L CL 108 96-108 mmol/L CO2 25 22-29 mmol/L Gap 10 L 12-20 BUN 17 H 9-16 mg/dL Creat 1.12 0.5-1.4 mg/dL eGFR 46 Chronic Kidney Disease: Estimated GFR < 60 mL/min/1.73m2 Severe Kidney Disease: Estimated GFR < 15 mL/min/1.73m2 FBS 107 H 60-99 mg/dL A fasting glucose from 100-125 mg/dl is considered impaired (pre-diabetes). CA 9.3 8.4-10.2 mg/dL AST (GOT) 24 5-31 U/L ALT (GPT) 12 0-31 U/L Triglyceride 78 <150 mg/dL Desirable Triglyceride: less than 150 mg/dL Borderline High Triglyceride 150-199 mg/dL High Triglyceride: 200-499 mg/dL Very High Triglyceride: greater than or equal to 5OO mg/dL Cholesterol 125 <200 mg/dL Desirable Cholesterol: less than 200 mg/dL Borderline High Cholesterol: 200-239 mg/dL High Cholesterol: greater than 239 mg/dL LDL Calculated 72 <100 mg/dL Desirable LDL: less than 100 mg/dL Near Optimal/Above Optimal LDL: 110-129 mg/dL Borderline High LDL: 130-159 mg/dL High LDL: 160-189 mg/dL Very High LDL: greater than or equal to 190 mg/dL HDL 38 L >40 mg/dL Desirable HDL: greater than 40 mg/dL Note: This HDL assay may give artificially low results in patients with liver disease. Vitamin D 25-OH 84.4 >30 ng/mL Health Based Reference Values* < 20 ng/mL Deficient 20-30 ng/mL Insufficient > 30 ng/mL Sufficient Coding Level of Care Code Est Pt Level 4 (06510) Diagnoses Osteopenia of both hips M85.851; M85.852 Dyslipidemia E78.5 Essential hypertension I10 Assessment & Plan Assessment & Plan (1) Osteopenia of both hips: Code(s): M85.851 - Other specified disorders of bone density and structure, right thigh; M85.852 - Other specified disorders of bone density and structure, left thigh Category: Medical Plan: Continue with doing regular weight-bearing exercise, take adequate calcium from dietary sources and continue with vitamin-D 3 supplements 50 mcg daily (2) Dyslipidemia: Code(s): E78.5 - Hyperlipidemia, unspecified Category: Medical Plan: Continued on simvastatin 10 mg at bedtime (3) Essential hypertension: Code(s): I10 - Essential (primary) hypertension Category: Medical Plan: Blood pressure at goal of less than 130/80. Continue amlodipine 10 mg daily Reinforced importance of following a low sodium diet, getting regular exercise, and lowering stress levels. Orders: Orders AMB Hemoglobin A1c Today Z13.9 - Encounter for screening, unspecified Hemoglobin A1c 03/27/26 E78.5 - Hyperlipidemia, unspecified, I10 - Essential (primary) hypertension, I44.0 - Atrioventricular block, first degree, M85.851 - Other specified disorders of bone density and structure, right thigh, M85.852 - Other specified disorders of bone density and structure, left thigh, Z78.0 - Asymptomatic menopausal state Hemoglobin and Hematocrit 03/27/26 E78.5 - Hyperlipidemia, unspecified, I10 - Essential (primary) hypertension, I44.0 - Atrioventricular block, first degree, M85.851 - Other specified disorders of bone density and structure, right thigh, M85.852 - Other specified disorders of bone density and structure, left thigh, Z78.0 - Asymptomatic menopausal state Basic Metabolic Panel Fasting 03/27/26 E78.5 - Hyperlipidemia, unspecified, I10 - Essential (primary) hypertension, I44.0 - Atrioventricular block, first degree, M85.851 - Other specified disorders of bone density and structure, right thigh, M85.852 - Other specified disorders of bone density and structure, left thigh, Z78.0 - Asymptomatic menopausal state Aspartate Amino Transferase 03/27/26 E78.5 - Hyperlipidemia, unspecified, I10 - Essential (primary) hypertension, I44.0 - Atrioventricular block, first degree, M85.851 - Other specified disorders of bone density and structure, right thigh, M85.852 - Other specified disorders of bone density and structure, left thigh, Z78.0 - Asymptomatic menopausal state Lipid Panel 03/27/26 E78.5 - Hyperlipidemia, unspecified, I10 - Essential (primary) hypertension, I44.0 - Atrioventricular block, first degree, M85.851 - Other specified disorders of bone density and structure, right thigh, M85.852 - Other specified disorders of bone density and structure, left thigh, Z78.0 - Asymptomatic menopausal state Vitamin D 25-OH Total 03/27/26 E78.5 - Hyperlipidemia, unspecified, I10 - Essential (primary) hypertension, I44.0 - Atrioventricular block, first degree, M85.851 - Other specified disorders of bone density and structure, right thigh, M85.852 - Other specified disorders of bone density and structure, left thigh, Z78.0 - Asymptomatic menopausal state Alanine Aminotransferase 03/27/26 E78.5 - Hyperlipidemia, unspecified, I10 - Essential (primary) hypertension, I44.0 - Atrioventricular block, first degree, M85.851 - Other specified disorders of bone density and structure, right thigh, M85.852 - Other specified disorders of bone density and structure, left thigh, Z78.0 - Asymptomatic menopausal state
== END 2025-07-29 09:56 | disposition home or self-care (01) ==
LOC: HO.HMCC 08:32
PROVIDERS: PCP Internal Medicine; Visit Provider Internal Medicine
DX: M85.851 Other specified disorders of bone density and structure, right thigh (principal); M85.852 Other specified disorders of bone density and structure, left thigh; E78.5 Hyperlipidemia, unspecified; I10 Essential (primary) hypertension; Z13.9 Encounter for screening, unspecified

== ENCOUNTER → 2025-07-29 08:31 | Outpatient (BNVA) | payer MEDICARE, SELFPAY | PROVIDERS: PCP Internal Medicine; Visit Provider Internal Medicine | DX: I10 Essential (primary) hypertension (principal); E78.5 Hyperlipidemia, unspecified; M85.851 Other specified disorders of bone density and structure, right thigh; M85.852 Other specified disorders of bone density and structure, left thigh; Z13.1 Encounter for screening for diabetes mellitus | CPT/HCPCS: 83036; 96127; 99212 ==